=== PATIENT | male | born 1940 | race Hispanic/Latino ===

== ENCOUNTER → 2018-05-10 12:57 | Outpatient (CLI) | payer MEDICARE, SELFPAY ==
[2018-05-10 13:55] LABS: BUN Creatinine Ratio 18.2 (6-22); Blood Urea Nitrogen 20 mg/dL (9-20); Calcium 9.7 mg/dL (8.4-10.2); Carbon Dioxide 26 mmol/L (22-32); Chloride 102 mmol/L (98-107); Estimated Glomerular Filt Rate > 60.0 mL/min (>60); Glucose 98 mg/dL (80-110); HEMOLYSIS < 15 (0-50); Potassium 3.6 mmol/L (3.4-5.1); Sodium 143 mmol/L (137-145)
[2018-05-10 14:26] LABS: Prostate Specific Antigen 0.967 ng/mL (0.10-4.00)
== END ==
PROVIDERS: PCP Family Medicine; Visit Provider Internal Medicine
DX: I10 Essential (primary) hypertension (principal); Z85.46 Personal history of malignant neoplasm of prostate; Z90.79 Acquired absence of other genital organ(s)
CPT/HCPCS: 36415; 80048; 84153

== ENCOUNTER → 2018-10-29 13:12 | Outpatient (CLI) | payer MEDICARE, SELFPAY ==
[2018-10-29 13:57] LABS: Urine Amphetamines Negative (Negative); Urine Barbiturates Negative (Negative); Urine Benzodiazepines Negative (Negative); Urine Cocaine Negative (Negative); Urine MDMA Negative (Negative); Urine Methadone Negative (Negative); Urine Methamphetamines Negative (Negative); Urine Morphine/Opi cutoff 2000 Negative (Negative); Urine Oxycodone Negative (Negative); Urine Phencyclidine Negative (Negative); Urine Tetrahydrocannabinol Negative (Negative); Urine Tricyclic Antidepressant Negative (Negative)
== END ==
PROVIDERS: Family Provider Family Medicine; Visit Provider Orthopaedic Surgery
DX: Z71.6 Tobacco abuse counseling (principal)
CPT/HCPCS: 80305; 80323

== ENCOUNTER → 2019-01-18 13:35 | Outpatient (CLI) | payer MEDICARE, SELFPAY ==
[2019-01-18 15:36] LABS: Prostate Specific Antigen 1.12 ng/mL (0.10-4.00)
[2019-01-18 16:07] LABS: Vitamin D 25 Hydroxy (D3) 22.2 ng/mL (30.0-100.0)
== END ==
PROVIDERS: PCP Student in an Organized Health Care Education/Training Program; Visit Provider Student in an Organized Health Care Education/Training Program
DX: Z91.89 Other specified personal risk factors, not elsewhere classified (principal); Z85.46 Personal history of malignant neoplasm of prostate
CPT/HCPCS: 36415; 82306; 84153

== ENCOUNTER → 2019-01-22 14:33 | Outpatient (CLI) | payer MEDICARE, SELFPAY ==
--- NOTE | 2019-01-22 14:37 | DI.RAD.S_ITS ---
PROCEDURE: XR CHEST 2V INDICATIONS: Cough TECHNIQUE: 2 views of the chest were acquired. COMPARISON: [facility], , CHEST 1 VIEW, 07/12/2015, 20:53. FINDINGS: Surgical changes and devices: None. Lungs and pleura: Lungs are clear. No pleural effusions or pneumothorax. Mediastinum: Mediastinal contours are normal. Heart size is normal. Bones and chest wall: No suspicious bony abnormalities. Bilateral shoulder joint degeneration Soft tissues appear unremarkable. IMPRESSION: No acute disease. Dictated by: Sathish James M.D. on 01/22/2019 at 16:25 Approved by: Sathish James M.D. on 01/22/2019 at 16:28
== END ==
PROVIDERS: PCP Student in an Organized Health Care Education/Training Program; Visit Provider Registered Nurse
DX: R05 Cough (principal)
CPT/HCPCS: 71046

== ENCOUNTER 2019-02-13 16:07 | Emergency (ER) | payer MEDICARE, SELFPAY ==
[2019-02-13 16:12] VITALS: BP 162/79; PULSE 79; RESP 24; TEMP 36.9; O2SAT 95; BMI 39.9
--- NOTE | 2019-02-13 17:23 | DI.RAD.S_ITS ---
PROCEDURE: XR CHEST 2V INDICATIONS: cough, sob TECHNIQUE: 2 views of the chest were acquired. COMPARISON: [facility], CR, XR CHEST 2V, 01/22/2019, 14:38. FINDINGS: Surgical changes and devices: Postoperative changes of the lumbar spine are only partly visualized on this exam. Lungs and pleura: Hilar prominence is identified bilaterally with prominent associated interstitial markings within the bilateral perihilar regions. No focal consolidation, effusion, or pneumothorax is appreciated. Mediastinum: Mediastinal contours are normal. Heart size is normal. There is aortic atherosclerosis. Bones and chest wall: No suspicious bony abnormalities. Soft tissues appear unremarkable. IMPRESSION: Possible mild hilar vascular congestion. No definite pneumonia. Dictated by: Shawn Shepard M.D. on 02/13/2019 at 16:48 Approved by: Shawn Shepard M.D. on 02/13/2019 at 16:48
[2019-02-13 17:27] VITALS: BP 155/92; PULSE 109; RESP 14; O2SAT 95
[2019-02-13] MEDS: ALBUTEROL 2.5 MG/3 ML NEB (ADULT) INH (17:42)
[2019-02-13 17:43] VITALS: PULSE 105; RESP 24; O2SAT 95
[2019-02-13 17:44] LABS: Influenza A and B by PCR Rapid Negative (Negative)
[2019-02-13 18:29] LABS: Add Manual Diff / Slide Review NO; Basophils Absolute Auto 0 /uL (0-100); Basophils Percent Auto 0.5 % (0-2); Eosinophils Absolute Auto 200 /uL (0-450); Eosinophils Percent Auto 2.6 % (2-4); Hematocrit 46.8 % (41-53); Hemoglobin 15.7 g/dL (13.5-17.5); Lymphocytes Absolute Auto 1400 /uL (1100-4500); Lymphocytes Percent Auto 17.8 % (25-40); Mean Corpuscular HGB Conc 33.6 % (30-36); Mean Corpuscular Hemoglobin 31.1 PG (26-34); Mean Corpuscular Volume 92.6 fL (80-100); Monocytes Absolute Auto 1300 /uL (0-900); Monocytes Percent Auto 17.1 % (3-14); Neutrophils Absolute Auto 4700 /uL (1500-7000); Platelet Count 170 X10^3/uL (150-400); Red Blood Cell Count 5.05 X10^6/uL (4.5-5.9); Red Cell Distribution Width 14.1 % (11.6-14.8); White Blood Cell Count 7.6 X10^3/uL (4.5-11.0)
--- NOTE | 2019-02-13 18:34 | PC.NURSE ---
No cardiac / blood thinners filled since 01/07. Pt states he only gets his meds filled [facility] and if they have not been filled he is not taking them. Provider aware that no cardiac meds po since 02/04.
[2019-02-13 18:40] LABS: Alanine Aminotransferase 28 IU/L (21-72); Albumin 4.3 g/dL (3.5-5.0); Albumin Globulin Ratio 1.3 (1.0-2.8); Alkaline Phosphatase 66 U/L (38-126); Aspartate Aminotransferase 35 IU/L (17-59); Bilirubin Total 0.8 mg/dL (0.2-1.3); Blood Urea Nitrogen 18 mg/dL (9-20); Calcium 8.9 mg/dL (8.4-10.2); Carbon Dioxide 27 mmol/L (22-32); Chloride 103 mmol/L (98-107); Creatine Kinase 192 U/L (55-170); Estimated Glomerular Filt Rate > 60.0 mL/min (>60); Globulin 3.3 g/dL (1.7-4.1); Glucose 85 mg/dL (80-110); HEMOLYSIS 40 (0-50); Magnesium 1.9 mg/dL (1.6-2.3); Potassium 3.8 mmol/L (3.4-5.1); Sodium 139 mmol/L (137-145); Total Protein 7.6 g/dL (6.3-8.2)
[2019-02-13 18:49] LABS: B Type Natriuretic Peptide < 100 (<100)
[2019-02-13 18:51] LABS: Troponin I < 0.012 ng/mL (0.01-0.034)
[2019-02-13 18:55] LABS: CKMB % Relative Index 1.1 % (1.5-5.0); Creatine Kinase MB 2.18 ng/mL (<2.37)
[2019-02-13] MEDS: methylPREDNISolone 125 MG/2 ML VIAL IV (19:11)
[2019-02-13 19:20] VITALS: BP 134/91; PULSE 112; RESP 23; O2SAT 93
--- NOTE | 2019-02-13 19:38 | ED_ITS ---
HPI - URI/Sore Throat <JAY Kruse - Last Filed: 02/13/19 20:10> General Chief Complaint: Upper Respiratory Symptoms Stated Complaint: Flu symptoms Time Seen by Provider: 02/13/19 17:39 Source: patient Mode of arrival: ambulatory Limitations: no limitations History of Present Illness HPI Narrative: Patient is a 78-year-old former smoker male with history of atrial fibrillation who presents to the emergency department with a chief complaint of shortness of breath and cough. He has been seen by his primary care provider twice recently for a cough. He denies any chest pain, fever nausea vomiting or diarrhea. He states that he was on steroids recently. Upon interview and investigation, it appears that the patient has not refilled many of his medications since the end of December. He is not sure whether not he is taking his daily medications. However his blood pressure medications such as metoprolol tartrate, amlodipine, and hydrochlorothiazide have not been filled s [facility] 01/07. Related Data Home Medications Medication Instructions Recorded Confirmed atorvastatin 10 mg tablet 10 mg PO DAILY 07/25/18 02/13/19 omeprazole 20 mg PO DAILY 02/13/19 02/13/19 Previous Rx's Medication Instructions Recorded acetaminophen ER 650 mg 1,300 mg PO Q8HP PRN #90 tab 07/02/18 tablet,extended release celecoxib 100 mg capsule 100 mg PO DAILY #30 cap 11/26/18 amlodipine 10 mg tablet 10 mg PO QDAY #30 tab 01/07/19 hydrochlorothiazide 25 mg tablet 25 mg PO QDAY #30 tab 01/07/19 metoprolol tartrate 100 mg tablet 100 mg PO BID #60 tab 01/07/19 rivaroxaban 20 mg tablet 20 mg PO QDAY #30 tab 01/07/19 benzonatate 200 mg capsule 200 mg PO TID PRN #20 cap 01/22/19 albuterol sulfate [Ventolin HFA] 2 puff INHALATION Q4-6H PRN #18 02/13/19 gram doxycycline hyclate 100 mg PO BID #20 tab 02/13/19 prednisone 50 mg PO DAILY #5 tab 02/13/19 Allergies Allergy/AdvReac Type Severity Reaction Status Date / Time No Known Drug Allergies Allergy Verified 02/05/19 13:31 Review of Systems <JAY Kruse - Last Filed: 02/13/19 20:10> Review of Systems GENERAL: Denies chills, fatigue, malaise, fever, sweats. HEENT: Denies sinus pain, ear pain, sore throat, difficulty swallowing, dizziness. RESPIRATORY: See HPI CARDIOVASCULAR: See HPI GASTROINTESTINAL: Denies nausea, vomiting, abdominal pain, diarrhea, constipation, melena. : Denies dysuria, frequency, incontinence, hematuria, urinary retention. MUSCULOSKELETAL: denies weakness, joint pain, or bony pain SKIN: Denies rash, skin lesions, or other NEUROLOGIC: Denies weakness, headache, numbness, change in speech, confusion, seizures, incoordination. PSYCHIATRIC: No concerning psychosocial issues. 12 point review of systems is negative except for those stated above PFSH <JAY Kruse - Last Filed: 02/13/19 20:10> Medical History Alcoholism (Chronic) Atrial fibrillation (Chronic 2014) Cervical spine disease (Chronic) Chronic back pain (Chronic) Hypertension (Chronic) Lumbar spine pain (Chronic) Shoulder pain (Chronic) Sleep apnea (Chronic 2014) Prostate cancer (Resolved) Stroke (Resolved) Surgical History (Updated 05/07/18 @ 14:57 by Paty Mehta) History of cancer surgery (Resolved) History of lumbosacral spine surgery (Resolved 2013) Social History Smoking Status: Former smoker alcohol intake: former substance use type: does not use Social History Smoking Status: Former smoker alcohol intake: former substance use type: does not use Exam <JAY Kruse - Last Filed: 02/13/19 20:10> Narrative Exam Narrative: GENERAL: Morbidly obese male lying on stretcher HEAD: Atraumatic. Normocephalic. No temporal or scalp tenderness. EYES: Pupils equal round and reactive. Extraocular motions intact. No scleral icterus. No injection or drainage. ENT: Nose without bleeding, purulent drainage or septal hematoma. Throat without erythema, tonsillar hypertrophy or exudate. Uvula midline. Airway patent. NECK: Trachea midline. No JVD or lymphadenopathy. Supple, nontender, no meningeal signs. CARDIOVASCULAR: Irregular rhythm, heart rate 90s. RESPIRATORY: Diffuse expiratory wheezes to auscultation bilaterally. breath sounds equal bilaterally. No accessory muscle use, or retractions noted. consistent cough on exam room. GASTROINTESTINAL: Abdomen obese, non-tender, nondistended. No hepato- splenomegaly, or palpable masses. No guarding. active bowel sounds all 4 quadrants EXTREMITIES: No clubbing, cyanosis, or edema. No joint tenderness, effusion, or edema noted. BACK: Nontender without deformity or crepitance. No flank tenderness. NEURO: AOx3. SKIN: No rash or erythema. Initial Vital Signs Initial Vital Signs: Vital Signs Temperature 98.4 F 02/13/19 16:12 Pulse Rate 79 02/13/19 16:12 Respiratory Rate 24 02/13/19 16:12 Blood Pressure 162/79 H 02/13/19 16:12 Pulse Oximetry 95 02/13/19 16:12 <Ho Gonzalez DO - Last Filed: 02/14/19 03:23> Initial Vital Signs Initial Vital Signs: Vital Signs Temperature 98.4 F 02/13/19 16:12 Pulse Rate 79 02/13/19 16:12 Respiratory Rate 24 02/13/19 16:12 Blood Pressure 162/79 H 02/13/19 16:12 Pulse Oximetry 95 02/13/19 16:12 Course <JAY Kruse - Last Filed: 02/13/19 20:10> Orders Ordered: Discontinued Medications Albuterol (Ventolin) 2.5 mg INH NOW ONE Stop: 02/13/19 17:40 Last Admin: 02/13/19 17:42 Dose: 2.5 mg Hydrochlorothiazide (Hydrochlorothiazide) 25 mg PO NOW ONE Stop: 02/13/19 19:04 Last Admin: 02/13/19 19:57 Dose: Not Given Methylprednisolone (Solu-Medrol 125 Mg Vial) 125 mg IV NOW ONE Stop: 02/13/19 19:04 Last Admin: 02/13/19 19:11 Dose: 125 mg Metoprolol Tartrate (Lopressor) 100 mg PO NOW ONE Stop: 02/13/19 19:07 Last Admin: 02/13/19 19:57 Dose: 100 mg Vital Signs - 8 hr 02/13/19 20:00 02/13/19 20:49 Temperature 98.8 F Pulse Rate 106 H 90 Respiratory Rate 17 22 Blood Pressure 136/98 H Blood Pressure [Left Arm] 155/84 H Pulse Oximetry 93 94 <Ho Gonzalez DO - Last Filed: 02/14/19 03:23> Orders Ordered: Discontinued Medications Albuterol (Ventolin) 2.5 mg INH NOW ONE Stop: 02/13/19 17:40 Last Admin: 02/13/19 17:42 Dose: 2.5 mg Hydrochlorothiazide (Hydrochlorothiazide) 25 mg PO NOW ONE Stop: 02/13/19 19:04 Last Admin: 02/13/19 19:57 Dose: Not Given Methylprednisolone (Solu-Medrol 125 Mg Vial) 125 mg IV NOW ONE Stop: 02/13/19 19:04 Last Admin: 02/13/19 19:11 Dose: 125 mg Metoprolol Tartrate (Lopressor) 100 mg PO NOW ONE Stop: 02/13/19 19:07 Last Admin: 02/13/19 19:57 Dose: 100 mg Vital Signs - 8 hr 02/13/19 20:00 02/13/19 20:49 Temperature 98.8 F Pulse Rate 106 H 90 Respiratory Rate 17 22 Blood Pressure 136/98 H Blood Pressure [Left Arm] 155/84 H Pulse Oximetry 93 94 MDM - URI/Sore Throat <JAY Kruse - Last Filed: 02/13/19 20:10> Lab Data Result diagrams: 02/13/19 18:19 02/13/19 18:19 Lab Results 02/13/19 02/13/19 02/13/19 Range/Units 17:18 18:19 18:19 WBC 7.6 (4.5-11.0) X10^3/uL RBC 5.05 (4.5-5.9) X10^6/uL Hgb 15.7 (13.5-17.5) g/dL Hct 46.8 (41-53) % MCV 92.6 (80-100) fL MCH 31.1 (26-34) PG MCHC 33.6 (30-36) % RDW 14.1 (11.6-14.8) % Plt Count 170 (150-400) X10^3/uL Neut % (Auto) 62.0 (50-75) % Lymph % (Auto) 17.8 L (25-40) % Isabella % (Auto) 17.1 H (3-14) % Eos % (Auto) 2.6 (2-4) % Baso % (Auto) 0.5 (0-2) % Neut # (Auto) 4700 (1026-1569) /uL Lymph # (Auto) 1400 (8379-2091) /uL Isabella # (Auto) 1300 H (0-900) /uL Eos # (Auto) 200 (0-450) /uL Baso # (Auto) 0 (0-100) /uL Sodium 139 (137-145) mmol/L Potassium 3.8 (3.4-5.1) mmol/L Chloride 103 (98-107) mmol/L Carbon Dioxide 27 (22-32) mmol/L BUN 18 (9-20) mg/dL Creatinine 0.90 (0.66-1.25) mg/dL Estimated GFR > 60.0 (>60) mL/min BUN/Creatinine Ratio 20.0 (6-22) Glucose 85 (80-110) mg/dL Calcium 8.9 (8.4-10.2) mg/dL Phosphorus 3.0 (2.3-3.7) mg/dL Magnesium 1.9 (1.6-2.3) mg/dL Total Bilirubin 0.8 (0.2-1.3) mg/dL AST 35 (17-59) IU/L ALT 28 (21-72) IU/L Alkaline Phosphatase 66 (38-126) U/L Total Creatine Kinase 192 H (55-170) U/L CK-MB (CK-2) 2.18 (<2.37) ng/mL CK-MB (CK-2) Rel Index 1.1 L (1.5-5.0) % Troponin I < 0.012 (0.01-0.034) ng/mL B-Natriuretic Peptide < 100 (<100) Total Protein 7.6 (6.3-8.2) g/dL Albumin 4.3 (3.5-5.0) g/dL Globulin 3.3 (1.7-4.1) g/dL Albumin/Globulin Ratio 1.3 (1.0-2.8) Influenza A & B (PCR) Negative (Negative) Imaging Data Chest x-ray: Radiologist's impression: [place] [id number] [place] [id number] XRay Report Signed Patient: Rosendo Atkins TMR#: [id number] : 2Acct:[id number] Age/Sex: 78 / MDate of Service: 02/13/19 Loc: ED Accession Number: [id number] Procedure: XR chest 2V Ordering Provider: Nanci Barrios-ROSALINO PROCEDURE: XR CHEST 2V INDICATIONS: cough, sob TECHNIQUE: 2 views of the chest were acquired. COMPARISON: [facility], CR, XR CHEST 2V, 01/22/2019, 14:38. FINDINGS: Surgical changes and devices: Postoperative changes of the lumbar spine are only partly visualized on this exam. Lungs and pleura: Hilar prominence is identified bilaterally with prominent associated interstitial markings within the bilateral perihilar regions. No focal consolidation, effusion, or pneumothorax is appreciated. Mediastinum: Mediastinal contours are normal. Heart size is normal. There is aortic atherosclerosis. Bones and chest wall: No suspicious bony abnormalities. Soft tissues appear unremarkable. IMPRESSION: Possible mild hilar vascular congestion. No definite pneumonia. Dictated by: Shawn Shepard M.D. on 02/13/2019 at 16:48 Approved by: Shawn Shepard M.D. on 02/13/2019 at 16:48 ECG Data Attestation: I personally reviewed and interpreted this ECG as follows: Interpretation: Atrial fibrillation. Heart rate 105. Right bundle yesika block noted. previous right bundle-branch block noted in previous EKG. PVCs x 2 noted. MDM Narrative Medical decision making narrative: The patient is a 78-year-old male who presents with 3 weeks of flu-like symptoms. on exam he is having wheezing, coughing. He was treated with a nebulizer by respiratory therapist. He was given IV steroids. Upon interview, it became questionable whether not he has been taking his medications appropriately. He refilled many of his medications in December for 30 days, and has not refilled them since. Thus I doubt he is taking his medications appropriately. He initially told me he did not take his metoprolol, so we gave him his oral night dose in the emergency department. This brought his rate down to AFib in the low 100s- 90s. He had a negative troponin, normal white blood cell count and a negative flu swab. I discussed at length following his care providers instructions regarding his medications, as I am concerned he is not taking them appropriately. I encouraged him to follow up with his primary care provider. I discussed admission to the hospital, but the patient declined. I offered to connect him with social work but the patient declined. Discussed at length return precautions to the emergency department including severe shortness of breath or chest pain. Patient no questions or concerns the emergency department. He did remain afebrile with a good pulse ox level and is hemodynamically stable throughout his stay in the emergency department. <Ho Gonzalez DO - Last Filed: 02/14/19 03:23> Lab Data Lab Results 02/13/19 02/13/19 02/13/19 Range/Units 17:18 18:19 18:19 WBC 7.6 (4.5-11.0) X10^3/uL RBC 5.05 (4.5-5.9) X10^6/uL Hgb 15.7 (13.5-17.5) g/dL Hct 46.8 (41-53) % MCV 92.6 (80-100) fL MCH 31.1 (26-34) PG MCHC 33.6 (30-36) % RDW 14.1 (11.6-14.8) % Plt Count 170 (150-400) X10^3/uL Neut % (Auto) 62.0 (50-75) % Lymph % (Auto) 17.8 L (25-40) % Isabella % (Auto) 17.1 H (3-14) % Eos % (Auto) 2.6 (2-4) % Baso % (Auto) 0.5 (0-2) % Neut # (Auto) 4700 (9875-3458) /uL Lymph # (Auto) 1400 (8598-3647) /uL Isabella # (Auto) 1300 H (0-900) /uL Eos # (Auto) 200 (0-450) /uL Baso # (Auto) 0 (0-100) /uL Sodium 139 (137-145) mmol/L Potassium 3.8 (3.4-5.1) mmol/L Chloride 103 (98-107) mmol/L Carbon Dioxide 27 (22-32) mmol/L BUN 18 (9-20) mg/dL Creatinine 0.90 (0.66-1.25) mg/dL Estimated GFR > 60.0 (>60) mL/min BUN/Creatinine Ratio 20.0 (6-22) Glucose 85 (80-110) mg/dL Calcium 8.9 (8.4-10.2) mg/dL Phosphorus 3.0 (2.3-3.7) mg/dL Magnesium 1.9 (1.6-2.3) mg/dL Total Bilirubin 0.8 (0.2-1.3) mg/dL AST 35 (17-59) IU/L ALT 28 (21-72) IU/L Alkaline Phosphatase 66 (38-126) U/L Total Creatine Kinase 192 H (55-170) U/L CK-MB (CK-2) 2.18 (<2.37) ng/mL CK-MB (CK-2) Rel Index 1.1 L (1.5-5.0) % Troponin I < 0.012 (0.01-0.034) ng/mL B-Natriuretic Peptide < 100 (<100) Total Protein 7.6 (6.3-8.2) g/dL Albumin 4.3 (3.5-5.0) g/dL Globulin 3.3 (1.7-4.1) g/dL Albumin/Globulin Ratio 1.3 (1.0-2.8) Influenza A & B (PCR) Negative (Negative) Discharge Plan Departure Patient Disposition: Home Clinical Impression: Lung infection, Cough, Breath shortness Discharge Date/Time: 02/13/19 20:51 Interventions: ED Discharge Assessment Last Done: 02/13/19 20:49 Instructions: DI for Cough -- Adult, DI for Shortness of Breath Activity Restrictions/Additional Instructions: I am giving you an inhaler for your wheezing, an antibiotic for the infection in your lungs, and a burst of prednisone for the inflammation in your lungs. Please call your doctor tomorrow. I am concerned about your medication use and that you are not taking the appropriate ones. Please come back to the emergency department for any acute concerns such as severe shortness of breath or chest pain. We gave you your dose of metoprolol tartrate tonight in the emergency department. Please start the prednisone tomorrow, as you receives some in your IV tonight. Prescriptions: New prednisone 50 mg tablet 50 mg PO DAILY Qty: 5 RF: 0 albuterol sulfate [Ventolin HFA] 90 mcg/actuation HFA aerosol inhaler 2 puff INHALATION Q4-6H PRN (Reason: shortness of breath) Qty: 18 RF: 0 doxycycline hyclate 100 mg tablet 100 mg PO BID Qty: 20 RF: 0 No Action celecoxib [Celebrex] 100 mg capsule 100 mg PO DAILY Qty: 30 RF: 5 amlodipine 10 mg tablet 10 mg PO QDAY Qty: 30 RF: 0 hydrochlorothiazide 25 mg tablet 25 mg PO QDAY Qty: 30 RF: 0 metoprolol tartrate [Lopressor] 100 mg tablet 100 mg PO BID Qty: 60 RF: 0 Xarelto 20 mg tablet 20 mg PO QDAY Qty: 30 RF: 0 benzonatate 200 mg capsule 200 mg PO TID PRN (Reason: cough) Qty: 20 RF: 0 acetaminophen 650 mg tablet extended release 1,300 mg PO Q8HP PRN (Reason: pain) Qty: 90 RF: 5 atorvastatin 10 mg tablet 10 mg PO DAILY RF: 0 omeprazole 20 mg capsule,delayed release(DR/EC) 20 mg PO DAILY RF: 0 Referrals: Rosendo Armando MD [Primary Care Provider] - <Ho Gonzalez DO - Last Filed: 02/14/19 03:23> [facility] ED Attending Kedar Attestation: I was immediately available in the department for consultation. Documentation has been reviewed. I agree with assessment and plan.
[2019-02-13] MEDS: METOPROLOL IR 50 MG TABLET 100 MG PO (19:57)
[2019-02-13 20:00] VITALS: BP 155/84; PULSE 106; RESP 17; O2SAT 93
[2019-02-13 20:49] VITALS: BP 136/98; PULSE 90; RESP 22; TEMP 37.1; O2SAT 94; O2SAT 99
== END 2019-02-13 20:51 | disposition home or self-care (01) ==
PROVIDERS: Emergency Medicine; Emergency Provider Nurse Practitioner Family; PCP Student in an Organized Health Care Education/Training Program
DX: J18.9 Pneumonia, unspecified organism (principal)
CPT/HCPCS: 36415; 36591; 71046; 80053; 82550; 82553; 83735; 83880; 84100; 84484; 85025; 87400; 93005; 94640; 96374; 99283; 99285; J2930; J7613

== ENCOUNTER 2019-03-12 07:18 | Emergency (ER) | payer MEDICARE, SELFPAY ==
[2019-03-12 07:25] VITALS: BP 170/79; PULSE 68; RESP 16; TEMP 36.4; O2SAT 98; BMI 39.9
--- NOTE | 2019-03-12 08:45 | ED.FALL ---
HPI - Fall General Chief Complaint: Fall Stated Complaint: LT eye lid cut/tripped Time Seen by Provider: 03/12/19 07:30 Source: patient Mode of arrival: ambulatory Limitations: no limitations History of Present Illness HPI Narrative: Patient presents emergency department complaining of a fall after tripping in his living room. Patient states he fell forward and hit the side of his head on a table. He sustained a laceration just above and going through his left lateral eyebrow. He denies loss of consciousness. Patient is on anticoagulation for atrial fibrillation. He states that he was not hurt in any other way. He has been ambulatory since. He denies neck pain or back pain. No extremity pain. no other complaints at this time. No visual changes. Related Data Home Medications Medication Instructions Recorded Confirmed aspirin 81 mg tablet,delayed 81 mg PO DAILY 02/19/19 02/19/19 release varenicline 0.5 mg (11)-1 mg (42) each PO PER PKG DIR each 02/19/19 02/19/19 tablets in a dose pack Previous Rx's Medication Instructions Recorded acetaminophen ER 650 mg 1,300 mg PO Q8HP PRN #90 tab 07/02/18 tablet,extended release benzonatate 200 mg capsule 200 mg PO TID PRN #20 cap 01/22/19 albuterol sulfate [Ventolin HFA] 2 puff INHALATION Q4-6H PRN #18 02/13/19 gram doxycycline hyclate 100 mg PO BID #20 tab 02/13/19 amlodipine 10 mg tablet 10 mg PO QDAY #30 tab 02/19/19 atorvastatin 10 mg tablet 10 mg PO DAILY #30 tab 02/19/19 budesonide 90 mcg/actuation breath 1 inhalation INHALATION BID #1 each 02/19/19 activated powder inhaler celecoxib 100 mg capsule 100 mg PO DAILY #30 cap 02/19/19 hydrochlorothiazide 25 mg tablet 25 mg PO QDAY #30 tab 02/19/19 loratadine 10 mg tablet 10 mg PO DAILY #90 tab 02/19/19 metoprolol tartrate 100 mg tablet 100 mg PO BID #60 tab 02/19/19 mirtazapine 15 mg tablet 15 mg PO DAILY #30 tab 02/19/19 omeprazole 20 mg capsule,delayed 20 mg PO DAILY #30 cap 02/19/19 release rivaroxaban 20 mg tablet 20 mg PO QDAY #30 tab 02/19/19 Allergies Allergy/AdvReac Type Severity Reaction Status Date / Time No Known Drug Allergies Allergy Verified 02/19/19 12:05 Review of Systems Constitutional Denies chills, Denies fever(s), Denies lethargy and Denies weakness Eyes Denies change in vision, Denies eye discharge, Denies irritation and Denies loss of vision ENT Ears, Nose, Mouth, and Throat: Denies change in voice, Denies neck pain and Denies sore throat Comments: Laceration left forehead/periorbital area. Cardiovascular Denies chest pain, Denies irregular heart rhythm, Denies lightheadedness, Denies palpitations, Denies dyspnea, Denies dyspnea on exertion and Denies orthopnea Respiratory Denies cough, Denies dyspnea, Denies dyspnea on exertion and Denies wheezing Gastrointestinal Gastrointestinal: Denies abdominal pain, Denies change in bowel habits, Denies diarrhea, Denies nausea and Denies vomiting Genitourinary Denies hematuria, Denies flank pain, Denies urinary incontinence and Denies urinary urgency Musculoskeletal Denies neck pain Integumentary/Breasts Denies pruritus, Denies erythema, Denies rash and Denies wounds Neurologic Denies confusion, Denies loss of vision and Denies weakness Psychiatric Denies anxiety, Denies confusion, Denies depression, Denies homicidal ideation and Denies suicidal ideation Endocrine Denies palpitations Hematologic/Lymphatic Denies easy bruising Allergic/Immunologic Denies wheezing Exam Initial Vital Signs Initial Vital Signs: Vital Signs Temperature 97.5 F L 03/12/19 07:25 Pulse Rate 68 03/12/19 07:25 Respiratory Rate 16 03/12/19 07:25 Blood Pressure 170/79 H 03/12/19 07:25 Pulse Oximetry 98 03/12/19 07:25 Const General: cooperative and well developed Nutritional Appearance: well nourished Orientation: alert, awake, oriented x3 and not confused [facility] Head: normocephalic, No atraumatic (2.5 cm laceration extending through the lateral left eyebrow) and contusion (Left lateral periorbital) Ears: external ears normal Nose: external nose normal and No nasal discharge Face and sinus: face symmetric and No dry mucous membranes Mouth: oral mucosae normal and moist mucous membranes Teeth and gingiva: dentition normal Eyes General: appearance normal, both eyes and all related structures Eyelids: eyelids normal Conjunctivae: conjunctivae normal Sclera: sclerae normal Pupils: PERRL EOM: EOM intact bilaterally Neck Neck: normal visual inspection, trachea midline, No lymphadenopathy, No midline deformity and No JVD Lymphatic: No lymphedema Chest Chest: normal inspection of the chest Resp Effort & Inspection: normal respiratory effort, able to speak in complete sentences, no respiratory distress and no use of accessory muscles Auscultation: clear to auscultation bilaterally, no rales, no rhonchi and no wheezes Cardio Rate: regular rate Rhythm: regular rhythm Heart Sounds: no click, no gallops, no murmurs and no rubs Pulses: normal peripheral pulses GI Inspection: non-distended Palpation: soft, no hepatosplenomegaly, No guarding, No pulsatile mass and No tender Auscultation: normal bowel sounds Back/Spine/Pelvis Back: No CVA tenderness Cervical Spine: cervical ROM normal and No pain with cervical ROM Thoracic/Lumbar Spine: thoracic and lumbar spine normal to inspection Skin General: no rashes or lesions noted, No jaundice and No petechiae Trauma: laceration (2.5 cm, as above; through left eyebrow) left face irregular, involves subcutaneous tissue, motor nerve function intact and sensation intact; does not involve muscle tissue Neuro General: alert, oriented x3, gait normal and no focal motor deficits Speech: speech normal Extrem General: full ROM, no clubbing, cyanosis or edema, no pedal edema and no calf tenderness Psych Appearance: well kempt Mental Status: mental status grossly normal Attitude: cooperative Thought Content: normal and suicidality Judgment: judgment good [facility] Medical History Alcoholism (Chronic) Atrial fibrillation (Chronic 2014) Cervical spine disease (Chronic) Chronic back pain (Chronic) Hypertension (Chronic) Lumbar spine pain (Chronic) Shoulder pain (Chronic) Sleep apnea (Chronic 2014) Prostate cancer (Resolved) Stroke (Resolved) Surgical History History of cancer surgery (Resolved) History of lumbosacral spine surgery (Resolved 2013) Social History Smoking Status: Former smoker alcohol intake: former substance use type: does not use Social History Smoking Status: Former smoker alcohol intake: former substance use type: does not use Procedures Laceration Repair Laceration 1: Site: face Side (If applicable): left Size (cm): 2.5 Description: irregular Depth: simple, single layer Local Anesthetic: lidocaine 2% Amount of anesthesia used (mL): 3 Pre-repair: wound explored, irrigated extensively and deep structures intact Skin layer closed with: nylon Size (cm): 5-0 Number of sutures: 6 Technique: simple, interrupted Course Course Narrative: 6 sutures were placed to repair the patient's laceration. Patient tolerated this without difficulty. Head CT was unremarkable. Patient did not show any other evidence of injury, and was moving all 4 extremities and ambulating without difficulty. I felt he was stable for discharge home. We have discussed wound care, as well as symptomatic management at home. We have also discussed the need for suture removal in 7 days, based on the depth of the patient's wound. We have discussed the usual indications for return to the emergency department. Orders Ordered: Discontinued Medications Acetaminophen (Tylenol) 975 mg PO NOW ONE Stop: 03/12/19 09:32 Last Admin: 03/12/19 09:36 Dose: 975 mg Vital Signs - 8 hr 03/12/19 07:25 Temperature 97.5 F L Pulse Rate 68 Respiratory Rate 16 Blood Pressure 170/79 H Pulse Oximetry 98 MDM - Fall Medical Records Attestation: I reviewed the patient's medical records. Imaging Data CT scan - head: Radiologist's impression: PROCEDURE: CT HEAD/BRAIN WO CON INDICATIONS: fall/head injury, on Xarelto, left forehead area TECHNIQUE: Noncontrast 4.5 mm thick angled axial sections acquired from the foramen magnum to the vertex, with coronal and sagittal reformats. For radiation dose reduction, the following was used: automated exposure control, adjustment of mA and/or kV according to patient size. COMPARISON: [facility], MR, STROKE PROTOCOL, 10/21/2016, 7:49. [facility], CT, HEAD WITHOUT CONTRAST, 12/05/2017, 12:59. FINDINGS: Image quality: Excellent. CSF spaces: Basal cisterns are patent. No extra-axial fluid collections. The ventricles are symmetric in size and shape. Brain: There is a stable remote infarction involving the left parietal lobe and a portion of the posterior left temporal lobe. No intracranial bleeds or masses. There is cerebral volume loss for age, with resultant ventricular and sulcal prominence. There are periventricular and deep white matter chronic small vessel ischemic changes. There is intracranial internal carotid artery atherosclerosis. Skull and face: A left forehead laceration with subcutaneous gas and hematoma can be seen. No underlying calvarial fracture is seen. Calvarium and visualized facial bones appear intact, without suspicious lesions. Note is made of bilateral lens replacements. Sinuses: Visualized sinuses and mastoids are clear. IMPRESSION: No acute intracranial hemorrhage is seen. Left forehead laceration and hematoma. 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 Note is made of age-appropriate brain parenchymal volume loss and chronic small vessel ischemic changes. Dictated by: Lamont Callahan M.D. on 03/12/2019 at 8:11 Approved by: Lamont Callahan M.D. on 03/12/2019 at 8:14 Discharge Plan Departure Patient Disposition: Home Clinical Impression: Fall Qualifiers: Encounter type: initial encounter Qualified Code(s): W19.XXXA - Unspecified fall, initial encounter CHI (closed head injury) Qualifiers: Encounter type: initial encounter Qualified Code(s): S09.90XA - Unspecified injury of head, initial encounter Facial laceration Qualifiers: Encounter type: initial encounter Qualified Code(s): S01.81XA - Laceration without foreign body of other part of head, initial encounter Discharge Date/Time: 03/12/19 09:46 Interventions: ED Discharge Assessment Last Done: 03/12/19 09:45 Instructions: DI for Laceration Repair, DI for Closed Head Injury Activity Restrictions/Additional Instructions: Please keep your wound clean and dry. Do not rub, scrub, or immerse the wound until sutures are removed, as this can cause infection. Sutures should be taken out by your primary doctor or urgent care in 7 days. Prescriptions: No Action benzonatate 200 mg capsule 200 mg PO TID PRN (Reason: cough) Qty: 20 RF: 0 acetaminophen 650 mg tablet extended release 1,300 mg PO Q8HP PRN (Reason: pain) Qty: 90 RF: 5 aspirin [Adult Low Dose Aspirin] 81 mg tablet,delayed release (DR/EC) 81 mg PO DAILY RF: 0 budesonide 90 mcg/actuation aerosol powdr breath activated 1 inhalation INHALATION BID Qty: 1 RF: 2 amlodipine 10 mg tablet 10 mg PO QDAY Qty: 30 RF: 3 Xarelto 20 mg tablet 20 mg PO QDAY Qty: 30 RF: 3 hydrochlorothiazide 25 mg tablet 25 mg PO QDAY Qty: 30 RF: 3 mirtazapine 15 mg tablet 15 mg PO DAILY Qty: 30 RF: 3 atorvastatin 10 mg tablet 10 mg PO DAILY Qty: 30 RF: 3 celecoxib [Celebrex] 100 mg capsule 100 mg PO DAILY Qty: 30 RF: 5 metoprolol tartrate [Lopressor] 100 mg tablet 100 mg PO BID Qty: 60 RF: 3 omeprazole 20 mg capsule,delayed release(DR/EC) 20 mg PO DAILY Qty: 30 RF: 3 loratadine [Allergy Relief (loratadine)] 10 mg tablet 10 mg PO DAILY Qty: 90 RF: 3 Chantix Starting Month Box 0.5 mg (11)- 1 mg (42) tablets,dose pack PO PER PKG DIR RF: 0 albuterol sulfate [Ventolin HFA] 90 mcg/actuation HFA aerosol inhaler 2 puff INHALATION Q4-6H PRN (Reason: shortness of breath) Qty: 18 RF: 0 doxycycline hyclate 100 mg tablet 100 mg PO BID Qty: 20 RF: 0 Referrals: Rosendo Armando MD [Primary Care Provider] -
--- NOTE | 2019-03-12 08:50 | DI.CT.S_ITS ---
PROCEDURE: CT HEAD/BRAIN WO CON INDICATIONS: fall/head injury, on Xarelto, left forehead area TECHNIQUE: Noncontrast 4.5 mm thick angled axial sections acquired from the foramen magnum to the vertex, with coronal and sagittal reformats. For radiation dose reduction, the following was used: automated exposure control, adjustment of mA and/or kV according to patient size. COMPARISON: [facility], MR, STROKE PROTOCOL, 10/21/2016, 7:49. [facility], CT, HEAD WITHOUT CONTRAST, 12/05/2017, 12:59. FINDINGS: Image quality: Excellent. CSF spaces: Basal cisterns are patent. No extra-axial fluid collections. The ventricles are symmetric in size and shape. Brain: There is a stable remote infarction involving the left parietal lobe and a portion of the posterior left temporal lobe. No intracranial bleeds or masses. There is cerebral volume loss for age, with resultant ventricular and sulcal prominence. There are periventricular and deep white matter chronic small vessel ischemic changes. There is intracranial internal carotid artery atherosclerosis. Skull and face: A left forehead laceration with subcutaneous gas and hematoma can be seen. No underlying calvarial fracture is seen. Calvarium and visualized facial bones appear intact, without suspicious lesions. Note is made of bilateral lens replacements. Sinuses: Visualized sinuses and mastoids are clear. IMPRESSION: No acute intracranial hemorrhage is seen. Left forehead laceration and hematoma. 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 Note is made of age-appropriate brain parenchymal volume loss and chronic small vessel ischemic changes. Dictated by: Lamont Callahan M.D. on 03/12/2019 at 8:11 Approved by: Lamont Callahan M.D. on 03/12/2019 at 8:14
[2019-03-12] MEDS: ACETAMINOPHEN 325 MG TABLET 975 MG PO (09:36)
[2019-03-12 09:41] VITALS: BP 149/93; PULSE 88; RESP 20; O2SAT 94
== END 2019-03-12 09:46 | disposition home or self-care (01) ==
PROVIDERS: Emergency Provider Emergency Medicine; PCP Student in an Organized Health Care Education/Training Program
DX: S01.81XA Laceration without foreign body of other part of head, initial encounter (principal); S09.90XA Unspecified injury of head, initial encounter; W19.XXXA Unspecified fall, initial encounter; Z79.01 Long term (current) use of anticoagulants
CPT/HCPCS: 12011; 70450; 99283; 99284

== ENCOUNTER → 2019-09-26 10:22 | Outpatient (CLI) | payer MEDICARE, SELFPAY ==
[2019-09-26 11:13] LABS: Add Manual Diff / Slide Review NO; Basophils Absolute Auto 0 /uL (0-100); Basophils Percent Auto 0.5 % (0-2); Eosinophils Absolute Auto 400 /uL (0-450); Eosinophils Percent Auto 5.5 % (2-4); Hematocrit 47.4 % (41-53); Hemoglobin 15.9 g/dL (13.5-17.5); Lymphocytes Absolute Auto 1700 /uL (1100-4500); Lymphocytes Percent Auto 20.7 % (25-40); Mean Corpuscular HGB Conc 33.7 % (30-36); Mean Corpuscular Hemoglobin 30.6 PG (26-34); Mean Corpuscular Volume 90.8 fL (80-100); Monocytes Absolute Auto 800 /uL (0-900); Monocytes Percent Auto 10.2 % (3-14); Neutrophils Absolute Auto 5100 /uL (1500-7000); Neutrophils Percent Auto 63.1 % (50-75); Platelet Count 258 X10^3/uL (150-400); Red Blood Cell Count 5.22 X10^6/uL (4.5-5.9); Red Cell Distribution Width 14.2 % (11.6-14.8); White Blood Cell Count 8.1 X10^3/uL (4.5-11.0)
[2019-09-26 12:04] LABS: Alanine Aminotransferase 17 IU/L (<50); Albumin 4.3 g/dL (3.5-5.0); Albumin Globulin Ratio 1.4 (1.0-2.8); Alkaline Phosphatase 79 U/L (38-126); Aspartate Aminotransferase 33 IU/L (17-59); BUN Creatinine Ratio 18.2 (6-22); Bilirubin Total 0.8 mg/dL (0.2-1.3); Blood Urea Nitrogen 20 mg/dL (9-20); Calcium 9.4 mg/dL (8.4-10.2); Carbon Dioxide 29 mmol/L (22-32); Chloride 99 mmol/L (98-107); Estimated Glomerular Filt Rate > 60.0 mL/min (>60); Globulin 3.1 g/dL (1.7-4.1); Glucose 96 mg/dL (80-110); HEMOLYSIS 15 (0-50); Potassium 4.3 mmol/L (3.4-5.1); Sodium 137 mmol/L (137-145); Total Protein 7.4 g/dL (6.3-8.2)
== END ==
PROVIDERS: PCP Student in an Organized Health Care Education/Training Program; Visit Provider Student in an Organized Health Care Education/Training Program
DX: R06.02 Shortness of breath (principal)
CPT/HCPCS: 36415; 80053; 85025

== ENCOUNTER → 2019-10-24 14:27 | Outpatient (CLI) | payer MEDICARE, SELFPAY ==
--- NOTE | 2019-11-01 08:49 | PM.PFT.1 ---
Pulmonary Function Test Referral & Results Date Patient Seen: 10/24/19 Requesting provider: Rosendo Armando Results: The spirometry demonstrates an FVC of 2.36 L which is 70% of predicted. The FEV1 was measured at 1.90 L which is 80% of predicted. The FEV1/FVC ratio was 80 which is 111% of predicted. Following the administration of bronchodilator there was a 23% improvement in FEF 25-75%. Lung volumes show an SVC of 3.09 L which is 83% of predicted. The diffusing capacity was measured at 22.86 which is 89% of predicted. The maximum voluntary ventilation was reduced Interpretation: This study demonstrates perhaps very mild obstructive lung disease based on slight reduction in FEV1 and minimal improvement in small airway flow after bronchodilator as above There is also minimal reduction in SVC suggesting potential for very mild restrictive lung disease Compared to PFTs performed in December 2015, current study is essentially unchanged
== END ==
PROVIDERS: PCP Student in an Organized Health Care Education/Training Program; Visit Provider Student in an Organized Health Care Education/Training Program
DX: R06.02 Shortness of breath (principal); F17.200 Nicotine dependence, unspecified, uncomplicated
CPT/HCPCS: 94060; 94726; 94729

== ENCOUNTER → 2020-12-04 13:42 | Outpatient (CLI) | payer MEDICARE, SELFPAY ==
[2020-12-04 14:24] LABS: Add Manual Diff / Slide Review NO; Basophils Absolute Auto 0 /uL (0-100); Basophils Percent Auto 0.4 % (0-2); Eosinophils Absolute Auto 300 /uL (0-450); Hematocrit 45.3 % (41-53); Hemoglobin 15.2 g/dL (13.5-17.5); Lymphocytes Absolute Auto 2100 /uL (1100-4500); Lymphocytes Percent Auto 24.5 % (25-40); Mean Corpuscular HGB Conc 33.6 % (30-36); Mean Corpuscular Hemoglobin 29.5 PG (26-34); Mean Corpuscular Volume 87.8 fL (80-100); Monocytes Absolute Auto 900 /uL (0-900); Monocytes Percent Auto 11.2 % (3-14); Neutrophils Absolute Auto 5100 /uL (1500-7000); Neutrophils Percent Auto 60.9 % (50-75); Platelet Count 219 X10^3/uL (150-400); Red Blood Cell Count 5.16 X10^6/uL (4.5-5.9); Red Cell Distribution Width 14.4 % (11.6-14.8); White Blood Cell Count 8.4 X10^3/uL (4.5-11.0)
[2020-12-04 14:36] LABS: Hemoglobin A1C% w Est Avg Glu 5.7 % (4.0-6.0)
[2020-12-04 14:37] LABS: Alanine Aminotransferase 15 IU/L (<50); Albumin 4.2 g/dL (3.5-5.0); Albumin Globulin Ratio 1.2 (1.0-2.8); Alkaline Phosphatase 90 U/L (38-126); Aspartate Aminotransferase 25 IU/L (17-59); BUN Creatinine Ratio 23.7 (6-22); Bilirubin Total 0.7 mg/dL (0.2-1.3); Blood Urea Nitrogen 18 mg/dL (9-20); Calcium 9.7 mg/dL (8.4-10.2); Carbon Dioxide 24 mmol/L (22-32); Chloride 109 mmol/L (98-107); Estimated Glomerular Filt Rate > 60.0 mL/min (>60); Globulin 3.5 g/dL (1.7-4.1); Glucose 110 mg/dL (80-110); HEMOLYSIS < 15 (0-50); Sodium 140 mmol/L (137-145); Total Protein 7.7 g/dL (6.3-8.2)
[2020-12-04 15:07] LABS: Prostate Specific Antigen 1.12 ng/mL (0.10-4.00)
[2020-12-04 15:18] LABS: Vitamin D 25 Hydroxy (D3) 15.8 ng/mL (30.0-100.0)
[2020-12-04 15:25] LABS: Vitamin B12 368 pg/mL (239-931)
== END ==
PROVIDERS: PCP Student in an Organized Health Care Education/Training Program; Referring Provider Student in an Organized Health Care Education/Training Program; Visit Provider Student in an Organized Health Care Education/Training Program
DX: I10 Essential (primary) hypertension (principal); R53.83 Other fatigue; Z79.899 Other long term (current) drug therapy; C61 Malignant neoplasm of prostate; I48.20 Chronic atrial fibrillation, unspecified; Z79.01 Long term (current) use of anticoagulants
CPT/HCPCS: 36415; 80053; 82306; 82607; 83036; 84153; 85025

== ENCOUNTER 2021-04-15 16:28 | Emergency (ER) | payer MEDICARE, SELFPAY ==
[2021-04-15 16:30] VITALS: BP 174/90; PULSE 82; RESP 17; TEMP 36.2; O2SAT 97; BMI 38.2
--- NOTE | 2021-04-15 16:34 | DI.RAD.S_ITS ---
PROCEDURE: XR FOOT RT MIN 3V INDICATIONS: pain and swelling TECHNIQUE: 3 views of the foot were acquired. COMPARISON: None. FINDINGS: Bones: Focal bony irregularity is seen involving the proximal phalanx of the 5th toe. No additional focal bony abnormalities can be seen. No suspicious bony lesions. Mild hallux valgus deformity is seen, with associated focal degenerative change of the 1st metatarsophalangeal joint. Milder degenerative changes are seen elsewhere, including along the Lisfranc joint. A plantar calcaneal spur is seen. Soft tissues: Distal soft tissue swelling is seen. IMPRESSION: Bony irregularity seen involving the proximal phalanx of the 5th toe, which is likely related to remote fracture. However, please correlate with patient history and focal tenderness. Distal soft tissue swelling is seen. Degenerative changes are seen, with mild hallux valgus deformity. If there is point tenderness (or other clinical suspicion for a fracture not seen on these images) then a dedicated CT could be considered for further evaluation, if clinically appropriate. If there is strong suspicion for developing osteomyelitis, please consider a dedicated MRI without and with contrast for further evaluation (assuming that there is no contraindication to MRI). Dictated by: Lamont Callahan M.D. on 04/15/2021 at 16:02 Approved by: Lamont Callahan M.D. on 04/15/2021 at 16:04
--- NOTE | 2021-04-15 18:24 | ED_ITS ---
HPI - Extremity Problem General Chief complaint: Extremity Problem,Nontraumatic Stated complaint: Rt Foot Swelling Time Seen by Provider: 04/15/21 17:59 Source: patient Mode of arrival: Ambulatory Limitations: no limitations History of Present Illness HPI Narrative: 80-year-old male, daily smoker with history of hypertension, hyperlipidemia and diabetes presents with a chief complaint of gradually worsening right foot pain, swelling and redness over the past few days. He denies any injury nor history of the same. He does have some pain and swelling on his anterior foot and reagan as well as some in the posterior calf. He denies any fever or chills. He denies chest pain or shortness of breath. He is otherw ise well and free of complaint. He denies any recent injury, long distance travel, history of blood clot or cancer. MD Complaint: extremity pain and extremity swelling Onset (ago): day(s) Pain Consistency: constant Location: right Quality: burning and aching Radiation: none Relieving factors: rest Exacerbating factors: walking and palpation Associated symptoms: denies other symptoms Related Data Previous Rx's Medication Instructions Recorded acetaminophen 500 mg tablet 1,000 mg PO Q6H #240 tab 12/04/20 amlodipine 10 mg tablet 10 mg PO DAILY #90 tab 12/04/20 atorvastatin 10 mg tablet 10 mg PO BEDTIME #90 tab 12/04/20 hydrochlorothiazide 25 mg tablet 25 mg PO QDAY #90 tab 12/04/20 loratadine 10 mg tablet 10 mg PO DAILY #90 tab 12/04/20 metoprolol tartrate 100 mg tablet 100 mg PO BID #180 tab 12/04/20 mirtazapine 15 mg tablet 15 mg PO DAILY #90 tab 12/04/20 omeprazole 20 mg capsule,delayed 20 mg PO DAILY #90 cap 12/04/20 release rivaroxaban 20 mg tablet 20 mg PO QDAY #90 tab 12/04/20 diclofenac sodium 100 mg 100 mg PO DAILY #90 tab 01/18/21 tablet,extended release 24 hr Parking Permit... #1 ea 02/23/21 doxycycline hyclate 100 mg PO BID #20 tab 04/15/21 Allergies Allergy/AdvReac Type Severity Reaction Status Date / Time No Known Drug Allergies Allergy Verified 04/15/21 16:31 Review of Systems Constitutional Constitutional: Denies chills, Denies fatigue, Denies fever(s), Denies frequent falls, Denies lethargy and Denies weakness Eyes Eyes: Denies change in vision, Denies eye discharge, Denies irritation and Denies loss of vision ENT Ears, Nose, Mouth, and Throat: Denies change in voice, Denies dizziness, Denies neck pain, Denies sore throat and Denies throat swelling Cardiovascular Cardiovascular: Denies chest pain, Denies irregular heart rhythm, Denies lightheadedness, Denies palpitations, Denies dyspnea, Denies dyspnea on exertion and Denies orthopnea Respiratory Respiratory: Denies cough, Denies dyspnea, Denies dyspnea on exertion and Denies wheezing Gastrointestinal Gastrointestinal: Denies abdominal pain, Denies change in bowel habits, Denies diarrhea, Denies nausea and Denies vomiting Musculoskeletal Musculoskeletal: Denies neck pain and Denies numbness Integumentary/Breasts Skin/Breast: Denies pruritus, Reports erythema, Denies rash, Reports skin pain, Reports skin swelling and Denies wounds Neurologic Neurologic: Denies behavioral changes, Denies confusion, Denies dizziness, Denies frequent falls, Denies loss of vision, Denies numbness and Denies weakness Psychiatric Psychiatric: Denies anxiety, Denies behavioral changes, Denies confusion, Denies depression, Denies homicidal ideation and Denies suicidal ideation Endocrine Endocrine: Denies fatigue, Denies flushing and Denies palpitations Hematologic/Lymphatic Hematologic/Lymphatic: Denies easy bruising Allergic/Immunologic Allergic/Immunologic: Denies urticaria, Denies throat swelling and Denies wheezing Patient History Medical History Alcoholism Atrial fibrillation (2014) 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 Hypertension Lumbar spine pain Malignant neoplasm of prostate (11/09/11) Morbid obesity with body mass index (BMI) of 40.0 to 44.9 in adult (04/07/16) Shoulder pain Sleep apnea (2014) Stroke Tear of right glenoid labrum TIA (transient ischemic attack) Uncomplicated opioid dependence (04/07/16) Surgical History History of cancer surgery History of lumbosacral spine surgery (2013) Social History Smoking Status: Current every day smoker alcohol intake: former substance use type: does not use Smoking Status: Current every day smoker alcohol intake frequency: holidays/special occasions only Substance Use Type: does not use Exam Narrative Exam Narrative: GENERAL: [80] year old patient appears stated age. Well-nourished, well-developed patient, in mild distress. HEAD: Atraumatic. Normocephalic. EYES: Pupils equal round and reactive. Extraocular motions intact. No scleral icterus. No injection or drainage. ENT: Nose without bleeding, purulent drainage. Throat without erythema, tonsillar hypertrophy or exudate. Airway patent. NECK: Trachea midline. Non tender CARDIOVASCULAR: Regular rate and rhythm without murmurs, gallops, or rubs. RESPIRATORY: Clear to auscultation. Breath sounds equal bilaterally. No wheezes, rales, or rhonchi. GASTROINTESTINAL: Abdomen soft, non-tender, nondistended. EXTREMITIES: Right lower extremity erythema, swelling, warmth and tenderness, most notable on the dorsum of the right foot, anterior reagan though there is some pain in the palpation of the posterior calf and medial thigh. No circumferential erythema, no lymphangitis. BACK: Nontender without deformity or crepitance. No flank tenderness. NEURO: AOx3. SKIN: No rash or erythema of visible areas Initial Vital Signs Initial Vital Signs: Vital Signs Temperature 97.1 F L 04/15/21 16:30 Pulse Rate 82 04/15/21 16:30 Respiratory Rate 17 04/15/21 16:30 Blood Pressure 174/90 H 04/15/21 16:30 Pulse Oximetry 97 04/15/21 16:30 Course Orders Ordered: ED Orders 04/15/21 16:34 XR foot RT min 3V Stat 04/15/21 18:27 periph venous low extrem rt Stat 04/15/21 18:49 Basic Metabolic Panel Stat Complete Blood Count AUTO DIFF Stat Discontinued Medications Doxycycline Hyclate (Doxycycline Hyclate 100 Mg Tablet) 100 mg PO NOW ONE Stop: 04/15/21 19:45 Last Admin: 04/15/21 19:59 Dose: 100 mg Documented by: GERONIMO Vital Signs Vital signs: Vital Signs - 8 hr 04/15/21 20:03 Pulse Rate 78 Respiratory Rate 18 Blood Pressure 148/70 H Pulse Oximetry 97 MDM - Extremity (Nontraumatic) Lab Data Result diagrams: 04/15/21 18:49 04/15/21 18:49 Labs: Lab Results 04/15/21 04/15/21 Range/Units 18:49 18:49 WBC 12.6 H (4.5-11.0) X10^3/uL RBC 4.86 (4.5-5.9) X10^6/uL Hgb 14.2 (13.5-17.5) g/dL Hct 42.2 (41-53) % MCV 86.9 (80-100) fL MCH 29.3 (26-34) PG MCHC 33.7 (30-36) % RDW 13.1 (11.6-14.8) % Plt Count 261 (150-400) X10^3/uL Neut % (Auto) 58.5 (50-75) % Lymph % (Auto) 22.5 L (25-40) % Overton % (Auto) 11.2 (3-14) % Eos % (Auto) 7.3 H (2-4) % Baso % (Auto) 0.5 (0-2) % Neut # (Auto) 7400 H (6798-1352) /uL Lymph # (Auto) 2800 (8361-3162) /uL Overton # (Auto) 1400 H (0-900) /uL Eos # (Auto) 900 H (0-450) /uL Baso # (Auto) 100 (0-100) /uL Sodium 140 (137-145) mmol/L Potassium 4.0 (3.4-5.1) mmol/L Chloride 103 (98-107) mmol/L Carbon Dioxide 28 (22-32) mmol/L BUN 20 (9-20) mg/dL Creatinine 0.84 (0.66-1.25) mg/dL Estimated GFR > 60.0 (>60) mL/min BUN/Creatinine Ratio 23.8 H (6-22) Glucose 100 (80-110) mg/dL Calcium 10.4 H (8.4-10.2) mg/dL Imaging Data US - DVT: Radiologist's Impression: [address] [id number] ReportSigned Patient: Rosendo Atkins TMR#: [id number]: 2Acct:[id number]/Sex: 80 / MDate of Service: 04/15/21Loc: EDAccession Number: [id number] Procedure: US periph venous low extrem rt Ordering Provider: Ho Gonzalez D.O. PROCEDURE: US PERIPH VENOUS LOW EXTREM RT INDICATIONS: PAIN, REDNESS TECHNIQUE: Real-time imaging, as well as color and pulse Doppler interrogation, were performed of the lower extremity deep veins from the inguinal ligament to the popliteal fossa. COMPARISON: None. FINDINGS: The common femoral, femoral and popliteal veins are normally compressible, and free of intraluminal thrombus. Color and pulse Doppler demonstrate normal phasic intraluminal flow. There is normal augmentation response to distal compression maneuver. IMPRESSION: No evidence of right lower extremity DVT. Dictated by: Pernell Zaragoza M.D. on 04/15/2021 at 19:36 Approved by: Pernell Zaragoza M.D. on 04/15/2021 at 19:[address] [facility] Narrative Medical decision making narrative: Multiple diagnoses including DVT versus cellulitis versus other considered. DVT thought unlikely given lack of findings on ultrasound. Cellulitis considered most likely given history, physical and elevated white blood cell count Patient with reassuring vital signs and labs, no signs of sepsis, appropriate for discharge. Findings and discharge diagnosis discussed with patient/family followed by verbalization of understanding Return precautions discussed with patient/family whom verbalize understanding. Discharge Plan Departure Patient Disposition: Home Clinical Impression: Cellulitis Qualifiers: Site of cellulitis: extremity Site of cellulitis of extremity: lower extremity Laterality: right Qualified Code(s): L03.115 - Cellulitis of right lower limb Instructions: DI for Cellulitis -- Adult Activity Restrictions/Additional Instructions: *You have been diagnosed with [right lower extremity cellulitis. Labs are very reassuring, ultrasound showed no clot] *What to do: *Please continue to take your regular medications as directed. [x ] New medication prescriptions sent to your pharmacy: [ [facility] in [place]] [ ] New medication written as a paper prescription [ ] No new medications given *Please follow up with your primary care provider in 2-3 days, call for an appointment. Let them know you were seen in the Emergency Department and that we ask that you be seen in follow up. We will electronically transmit a record of today's note if your PCP is in our system *If you do not have a primary care provider please contact the [facility] Resource line at [phone]. They will ask some questions about your medical history and help get you set up with a doctor in the community. *Return to Emergency Department if you should have any new, worsening or concerning symptoms, such as [fever greater than 101 F, shaking chills, worsening pain, persistent vomiting or other bothersome symptoms] Prescriptions: New doxycycline hyclate 100 mg tablet 100 mg PO BID Qty: 20 RF: 0 No Action diclofenac sodium 100 mg tablet extended release 24 hr 100 mg PO DAILY Qty: 90 RF: 3 (DME) Parking Permit... See Rx Instructions .ROUTE .MEDSUPPLY Qty: 1 RF: 0 hydrochlorothiazide 25 mg tablet 25 mg PO QDAY Qty: 90 RF: 3 atorvastatin 10 mg tablet 10 mg PO BEDTIME Qty: 90 RF: 3 amlodipine 10 mg tablet 10 mg PO DAILY Qty: 90 RF: 3 acetaminophen 500 mg tablet 1,000 mg PO Q6H Qty: 240 RF: 11 loratadine [Allergy Relief (loratadine)] 10 mg tablet 10 mg PO DAILY Qty: 90 RF: 3 metoprolol tartrate [Lopressor] 100 mg tablet 100 mg PO BID Qty: 180 RF: 3 mirtazapine 15 mg tablet 15 mg PO DAILY Qty: 90 RF: 3 omeprazole 20 mg capsule,delayed release(DR/EC) 20 mg PO DAILY Qty: 90 RF: 3 Xarelto 20 mg tablet 20 mg PO QDAY Qty: 90 RF: 3 Referrals: Rosendo Armando MD [Primary Care Provider] -
--- NOTE | 2021-04-15 18:27 | DI.US.S_ITS ---
PROCEDURE: US PERIPH VENOUS LOW EXTREM RT INDICATIONS: PAIN, REDNESS TECHNIQUE: Real-time imaging, as well as color and pulse Doppler interrogation, were performed of the lower extremity deep veins from the inguinal ligament to the popliteal fossa. COMPARISON: None. FINDINGS: The common femoral, femoral and popliteal veins are normally compressible, and free of intraluminal thrombus. Color and pulse Doppler demonstrate normal phasic intraluminal flow. There is normal augmentation response to distal compression maneuver. IMPRESSION: No evidence of right lower extremity DVT. Dictated by: Pernell Zaragoza M.D. on 04/15/2021 at 19:36 Approved by: Pernell Zaragoza M.D. on 04/15/2021 at 19:36
[2021-04-15 18:53] LABS: Add Manual Diff / Slide Review NO; Basophils Absolute Auto 100 /uL (0-100); Basophils Percent Auto 0.5 % (0-2); Eosinophils Absolute Auto 900 /uL (0-450); Eosinophils Percent Auto 7.3 % (2-4); Hematocrit 42.2 % (41-53); Hemoglobin 14.2 g/dL (13.5-17.5); Lymphocytes Absolute Auto 2800 /uL (1100-4500); Lymphocytes Percent Auto 22.5 % (25-40); Mean Corpuscular HGB Conc 33.7 % (30-36); Mean Corpuscular Hemoglobin 29.3 PG (26-34); Mean Corpuscular Volume 86.9 fL (80-100); Monocytes Absolute Auto 1400 /uL (0-900); Monocytes Percent Auto 11.2 % (3-14); Neutrophils Absolute Auto 7400 /uL (1500-7000); Neutrophils Percent Auto 58.5 % (50-75); Platelet Count 261 X10^3/uL (150-400); Red Blood Cell Count 4.86 X10^6/uL (4.5-5.9); Red Cell Distribution Width 13.1 % (11.6-14.8); White Blood Cell Count 12.6 X10^3/uL (4.5-11.0)
[2021-04-15 19:08] LABS: BUN Creatinine Ratio 23.8 (6-22); Blood Urea Nitrogen 20 mg/dL (9-20); Calcium 10.4 mg/dL (8.4-10.2); Carbon Dioxide 28 mmol/L (22-32); Chloride 103 mmol/L (98-107); Estimated Glomerular Filt Rate > 60.0 mL/min (>60); Glucose 100 mg/dL (80-110); HEMOLYSIS < 15 (0-50); Sodium 140 mmol/L (137-145)
[2021-04-15] MEDS: DOXYCYCLINE HYCLATE 100 MG TABLET PO (19:59)
[2021-04-15 20:03] VITALS: BP 148/70; PULSE 78; RESP 18; O2SAT 97
== END 2021-04-15 20:04 | disposition home or self-care (01) ==
PROVIDERS: Emergency Provider Emergency Medicine; PCP Student in an Organized Health Care Education/Training Program
DX: L03.115 Cellulitis of right lower limb (principal)
CPT/HCPCS: 73630; 80048; 85025; 93971; 99283; 99284

== ENCOUNTER → 2021-08-03 13:28 | Outpatient (CLI) | payer MEDICARE, SELFPAY ==
--- NOTE | 2021-08-03 13:31 | DI.RAD.S_ITS ---
PROCEDURE: XR SHOULDER LT MIN 2V INDICATIONS: Left shoulder fracture TECHNIQUE: 2 views of the shoulder were acquired. COMPARISON: Outside Facility, RG, CT THORAX W/O CONTRAST, 07/11/2021, 19:01. [facility], CR, SHOULDER MINIMUM 2VIEW RIGHT, 09/28/2015, 19:20. [facility], , SHOULDER MINIMUM 2VIEW RIGHT, 10/27/2011, 11:28. Outside Facility, RG, XR SHOULDER 2V LEFT, 07/11/2021, 18:47. FINDINGS: Bones: Impacted fracture of the left humeral head. The fracture line is less conspicuous. The alignment appears unchanged. No glenohumeral joint dislocation. Advanced degenerative change. No suspicious bony lesions. Visualized ribs appear intact. Soft tissues: No suspicious soft tissue calcifications. IMPRESSION: Impacted fracture of the left humeral head is similar. Advanced degenerative change. Dictated by: Chava Ellis M.D. on 08/03/2021 at 14:33 Approved by: Chava Ellis M.D. on 08/03/2021 at 14:36
== END ==
PROVIDERS: PCP Student in an Organized Health Care Education/Training Program; Referring Provider Student in an Organized Health Care Education/Training Program; Visit Provider Student in an Organized Health Care Education/Training Program
DX: S42.292D Other displaced fracture of upper end of left humerus, subsequent encounter for fracture with routine healing (principal)
CPT/HCPCS: 73030

== ENCOUNTER → 2021-10-20 10:31 | Outpatient (CLI) | payer MEDICARE, MEDICAID, SELFPAY ==
--- NOTE | 2021-10-20 10:40 | DI.CT.S_ITS ---
PROCEDURE: CT UE LT WO CON INDICATIONS: Fracture of left shoulder girdle, part unspecified TECHNIQUE: Noncontrast 1-1.5 mm thick sections acquired from the acromioclavicular joint to the inferior scapula, with coronal and sagittal reformatting. COMPARISON: [facility] [place], CR, XR SHOULDER 2+ VIEWS LEFT, 10/14/2021, 10:32. FINDINGS: Image quality: Excellent. Bones: A comminuted fracture of the humeral head/neck junction is again demonstrated with evidence of intra osseous hematoma. Prominent osteophytosis about the glenohumeral articulation. The remaining visualized osseous structures appear maintained. Moderate arthrosis of the AC joint. Soft tissues: Glenohumeral hemarthrosis. Edema about the fracture site. IMPRESSION: 1. Comminuted fracture of the humeral head/neck junction as detailed above. Dictated by: Daryl Chambers M.D. on 10/20/2021 at 10:55 Approved by: Daryl Chambers M.D. on 10/20/2021 at 11:06
== END ==
PROVIDERS: PCP Student in an Organized Health Care Education/Training Program; Referring Provider Orthopaedic Surgery; Visit Provider Orthopaedic Surgery
DX: S42.92XA Fracture of left shoulder girdle, part unspecified, initial encounter for closed fracture (principal); M19.012 Primary osteoarthritis, left shoulder; X58.XXXA Exposure to other specified factors, initial encounter
CPT/HCPCS: 73200

== ENCOUNTER → 2021-11-30 14:58 | Outpatient (CLI) | payer OTHER, MEDICAID, SELFPAY ==
[2021-11-30 15:53] LABS: Add Manual Diff / Slide Review NO; Basophils Absolute Auto 100 /uL (0-100); Basophils Percent Auto 0.6 % (0-2); Eosinophils Absolute Auto 400 /uL (0-450); Eosinophils Percent Auto 4.2 % (2-4); Hematocrit 39.9 % (41-53); Hemoglobin 13.2 g/dL (13.5-17.5); Lymphocytes Absolute Auto 2300 /uL (1100-4500); Lymphocytes Percent Auto 24.8 % (25-40); Mean Corpuscular Hemoglobin 26.5 PG (26-34); Mean Corpuscular Volume 80.5 fL (80-100); Monocytes Absolute Auto 1200 /uL (0-900); Monocytes Percent Auto 13.7 % (3-14); Neutrophils Absolute Auto 5200 /uL (1500-7000); Neutrophils Percent Auto 56.7 % (50-75); Platelet Count 250 X10^3/uL (150-400); Red Blood Cell Count 4.96 X10^6/uL (4.5-5.9); Red Cell Distribution Width 16.3 % (11.6-14.8); White Blood Cell Count 9.1 X10^3/uL (4.5-11.0)
[2021-11-30 16:07] LABS: Hemoglobin A1C% w Est Avg Glu 6.2 % (4.0-6.0)
[2021-11-30 16:43] LABS: Alanine Aminotransferase 13 IU/L (<50); Albumin 4.4 g/dL (3.5-5.0); Albumin Globulin Ratio 1.2 (1.0-2.8); Alkaline Phosphatase 88 U/L (38-126); Aspartate Aminotransferase 27 IU/L (17-59); BUN Creatinine Ratio 22.8 (6-22); Bilirubin Total 0.5 mg/dL (0.2-1.3); Blood Urea Nitrogen 26 mg/dL (9-20); Calcium 9.5 mg/dL (8.4-10.2); Carbon Dioxide 28 mmol/L (22-32); Chloride 104 mmol/L (98-107); Estimated Glomerular Filt Rate > 60.0 mL/min (>60); Globulin 3.6 g/dL (1.7-4.1); Glucose 87 mg/dL (80-110); HEMOLYSIS < 15 (0-50); Sodium 141 mmol/L (137-145)
[2021-11-30 17:04] LABS: Vitamin D 25 Hydroxy (D3) 24.4 ng/mL (30.0-100.0)
[2021-11-30 17:12] LABS: Prostate Specific Antigen 1.27 ng/mL (0.10-4.00)
== END ==
PROVIDERS: PCP Student in an Organized Health Care Education/Training Program; Referring Provider Student in an Organized Health Care Education/Training Program; Visit Provider Student in an Organized Health Care Education/Training Program
DX: I10 Essential (primary) hypertension (principal); Z01.810 Encounter for preprocedural cardiovascular examination; Z85.46 Personal history of malignant neoplasm of prostate; E55.9 Vitamin D deficiency, unspecified; E66.9 Obesity, unspecified
CPT/HCPCS: 36415; 80053; 82306; 83036; 84153; 85025

== ENCOUNTER → 2022-01-21 13:37 | Outpatient (CLI) | payer OTHER, SELFPAY ==
--- NOTE | 2022-01-21 13:39 | DI.RAD.S_ITS ---
PROCEDURE: XR SHOULDER RT MIN 2V INDICATIONS: DJD of right shoulder TECHNIQUE: 3 views of the shoulder were acquired. COMPARISON: [facility], CR, XR SHOULDER LT MIN 2V, 08/03/2021, 13:26. FINDINGS: Bones: Moderate callus formation surrounding the humeral head is present. Soft tissues: No suspicious soft tissue calcifications. IMPRESSION: Healed humeral fracture. Dictated by: Pernell Zaragoza M.D. on 01/21/2022 at 15:09 Approved by: Pernell Zaragoza M.D. on 01/21/2022 at 15:09
--- NOTE | 2022-01-21 13:39 | DI.RAD.S_ITS ---
PROCEDURE: XR FOREARM LT 2V INDICATIONS: Left forearm edema, pain, post-traumatic TECHNIQUE: 2 views of the forearm were acquired. COMPARISON: None. FINDINGS: Bones: No fractures or dislocations. Osteoarthritic changes along radial aspect of left wrist are seen. No suspicious bony lesions. Soft tissues: No suspicious soft tissue calcifications or masses. IMPRESSION: No forearm fracture or dislocation. 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 Dictated by: Sandeep Ballard M.D. on 01/21/2022 at 16:21 Approved by: Sandeep Ballard M.D. on 01/21/2022 at 16:22
== END ==
PROVIDERS: PCP Student in an Organized Health Care Education/Training Program; Referring Provider Student in an Organized Health Care Education/Training Program; Visit Provider Student in an Organized Health Care Education/Training Program
DX: M19.032 Primary osteoarthritis, left wrist (principal); M25.511 Pain in right shoulder; M79.632 Pain in left forearm; Z87.81 Personal history of (healed) traumatic fracture
CPT/HCPCS: 73030; 73090

== ENCOUNTER 2022-03-10 19:16 | Emergency (ER) | payer OTHER, SELFPAY ==
[2022-03-10] VITALS (21 sets, daily range): BP systolic 108–171; BP diastolic 59–149; PULSE 88–145; RESP 16–47; TEMP 37.3; O2SAT 91–98
--- NOTE | 2022-03-10 19:25 | DI.RAD.S_ITS ---
PROCEDURE: XR ACUTE ABDOMEN SERIES INDICATIONS: N/V/D, cough, SOB TECHNIQUE: One view chest and two views of the abdomen were acquired. COMPARISON: None. FINDINGS: Surgical changes and devices: Lumbar spine fixation hardware. Chest: Lungs are clear. Heart is enlarged. No pleural effusions. No pneumoperitoneum. Abdomen: Bowel gas pattern is nonspecific with paucity of gas in the small bowel. No suspicious calcifications. Visualized solid organ contours appear normal. Bones: No suspicious bony lesions. IMPRESSION: Nonspecific bowel gas pattern without definite evidence of obstruction. No acute cardiopulmonary disease process. Dictated by: Laura Mc MD, PhD on 03/10/2022 at 19:52 Approved by: Laura Mc MD, PhD on 03/10/2022 at 19:53
[2022-03-10 19:41] LABS: Add Manual Diff / Slide Review NO; Basophils Absolute Auto 100 /uL (0-100); Basophils Percent Auto 0.4 % (0-2); Eosinophils Absolute Auto 0 /uL (0-450); Hematocrit 40.3 % (41-53); Hemoglobin 13.1 g/dL (13.5-17.5); Lymphocytes Absolute Auto 1300 /uL (1100-4500); Lymphocytes Percent Auto 7.1 % (25-40); Mean Corpuscular HGB Conc 32.6 % (30-36); Mean Corpuscular Hemoglobin 26.5 PG (26-34); Mean Corpuscular Volume 81.2 fL (80-100); Monocytes Absolute Auto 1900 /uL (0-900); Monocytes Percent Auto 10.3 % (3-14); Neutrophils Absolute Auto 15100 /uL (1500-7000); Neutrophils Percent Auto 82.2 % (50-75); Platelet Count 278 X10^3/uL (150-400); Red Blood Cell Count 4.96 X10^6/uL (4.5-5.9); Red Cell Distribution Width 15.7 % (11.6-14.8); White Blood Cell Count 18.4 X10^3/uL (4.5-11.0)
--- NOTE | 2022-03-10 19:42 | ED.NAVMDI ---
HPI - Nausea/Vomiting/Diarrhea General Chief complaint: Nausea/Vomiting/Diarrhea Stated complaint: NVD Time Seen by Provider: 03/10/22 19:21 History of Present Illness HPI Narrative: 81-year-old male smoker, former alcohol abuse, AFib on Xarelto with history of frequent falls presents by EMS for evaluation of a ground level fall with no reported injury. He is a poor historian but states he does not know exactly why he fell but he has had some nausea vomiting and diarrhea for the past few days. He denies fever or chills. He has had a little bit of a cough but denies any chest pain or shortness of breath. He denies fever or shaking chills. He has no new medications or dietary change. He denies exposure to other ill persons and is fully vaccinated against COVID. He states he did not hit his head and has no neck pain. Related Data Previous Rx's Medication Instructions Recorded loratadine 10 mg tablet (Allergy 10 mg PO DAILY #90 tab 12/04/20 Relief (loratadine)) docusate sodium 100 mg capsule 100 mg PO BID #60 cap 08/03/21 amlodipine 10 mg tablet 10 mg PO DAILY #90 tab 10/21/21 atorvastatin 10 mg tablet 10 mg PO BEDTIME #90 tab 10/21/21 hydrochlorothiazide 25 mg tablet 25 mg PO QDAY #90 tab 10/21/21 metoprolol tartrate 100 mg tablet 100 mg PO BID #180 tab 10/21/21 (Lopressor) mirtazapine 15 mg tablet 15 mg PO DAILY #90 tab 10/21/21 omeprazole 20 mg capsule,delayed 20 mg PO DAILY #90 cap 10/21/21 release rivaroxaban 20 mg tablet (Xarelto) 20 mg PO DAILY #90 tab 10/21/21 acetaminophen 325 mg tablet 650 mg PO Q6H #240 tab 01/18/22 Allergies Allergy/AdvReac Type Severity Reaction Status Date / Time No Known Drug Allergies Allergy Verified 01/18/22 16:50 Review of Systems Review of Systems Narrative: GENERAL: Denies chills, fatigue, malaise, fever, sweats. HEENT: Denies sinus pain, ear pain, sore throat, difficulty swallowing, dizziness. RESPIRATORY: Denies dyspnea, cough, wheezing, hemoptysis, sputum. CARDIOVASCULAR: Denies chest pain, palpitations, orthopnea, edema, GASTROINTESTINAL: See HPI : Denies dysuria, frequency, incontinence, hematuria, urinary retention. MUSCULOSKELETAL: denies weakness, joint pain, or bony pain SKIN: Denies rash, skin lesions, or other NEUROLOGIC: Denies weakness, headache, numbness, change in speech, confusion, seizures, incoordination. PSYCHIATRIC: No concerning psychosocial issues. 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 History of prostate cancer Hypertension Lumbar spine pain Malignant neoplasm of prostate (11/09/11) Morbid obesity with body mass index (BMI) of 40.0 to 44.9 in adult (04/07/16) Shoulder pain Sleep apnea (2014) Stroke Tear of right glenoid labrum TIA (transient ischemic attack) Uncomplicated opioid dependence (04/07/16) Surgical History History of cancer surgery History of lumbosacral spine surgery (2013) Social History Smoking Status: Current every day smoker alcohol intake: former substance use type: does not use Smoking Status: Current every day smoker alcohol intake frequency: holidays/special occasions only Substance Use Type: does not use Exam Narrative Exam Narrative: GENERAL: [81] year old patient appears stated age. Well-developed patient, in mild distress. GCS 14 (confused). HEAD: Atraumatic. Normocephalic. No hematoma, abrasion or evidence of depressed skull fracture EYES: Pupils equal round and reactive. No hyphema. Extraocular motions intact. No scleral icterus. No injection or drainage. ENT: Nose without bleeding, purulent drainage. Throat without erythema, tonsillar hypertrophy or exudate. Airway patent. NECK: Trachea midline. Non tender CARDIOVASCULAR: Regular rate and rhythm without murmurs, gallops, or rubs. RESPIRATORY: Clear to auscultation. Breath sounds equal bilaterally. No wheezes, rales, or rhonchi. GASTROINTESTINAL: Abdomen soft, non-tender, nondistended. EXTREMITIES: No edema or joint tenderness. BACK: Nontender without deformity or crepitance. No flank tenderness. NEURO: AOx3. SKIN: No rash or erythema of visible areas Initial Vital Signs Initial Vital Signs: Vital Signs Pulse Rate 95 H 03/10/22 19:20 Blood Pressure 108/59 L 03/10/22 19:20 Pulse Oximetry 93 03/10/22 19:20 Course Orders Ordered: ED Orders 03/10/22 19:25 XR acute abdomen series Stat 03/10/22 19:30 Complete Blood Count AUTO DIFF Stat Comprehensive Metabolic Panel Stat Covid-19 + FLU A/B by PCR Stat D Dimer Stat Lactate (Lactic Acid) Stat Lipase Stat NT-proBNP (BNP-Adult 18+) Stat Prothrombin Time INR Stat Troponin & CK Cardiac Panel Stat 03/10/22 19:50 Blood Culture Stat 03/10/22 20:14 EKG-12 Lead Stat 03/10/22 20:52 CT head/brain wo con Stat 03/10/22 21:43 CT angio head Stat 03/10/22 21:44 CT cervical spine wo con Stat Discontinued Medications Sodium Chloride (Normal Saline 0.9%) 1,000 mls @ 1,000 mls/hr IV BOLUS ONE Stop: 03/10/22 20:23 Last Infusion: 03/10/22 22:33 Dose: 0 mls/hr Documented by: Admin: 03/10/22 19:55 Dose: 1,000 mls/hr Documented by: AMANDA Levofloxacin (Levaquin) 750 mg in 150 mls @ 100 mls/hr IV NOW ONE Stop: 03/10/22 21:31 Last Infusion: 03/10/22 22:14 Dose: 0 mls/hr Documented by: Admin: 03/10/22 20:09 Dose: 100 mls/hr Documented by: EASTON Prothrombin Complex Concent ( Human) 2,500 unit/Miscellaneous 100 mls @ 816.466 mls/hr IV NOW ONE; Protocol Stop: 03/10/22 21:55 Last Admin: 03/10/22 22:40 Dose: Not Given Documented by: GO Nicardipine HCl 25 mg/ Sodium (Chloride) 250 mls @ 50 mls/hr IV TITRATE TANNER; Protocol Last Titration: 03/10/22 22:47 Dose: 0 mg/hr, 0 mls/hr Documented by: Admin: 03/10/22 22:18 Dose: 5 mg/hr, 50 mls/hr Documented by: AMANDA Ondansetron HCl (Ondansetron 4 Mg/2 Ml Inj) 4 mg IV NOW ONE Stop: 03/10/22 19:25 Last Admin: 03/10/22 19:55 Dose: 4 mg Documented by: AMANDA Pantoprazole Sodium (Pantoprazole 40 Mg Vial) 40 mg IV NOW ONE Stop: 03/10/22 19:25 Last Admin: 03/10/22 19:55 Dose: 40 mg Documented by: AMANDA Consultations Consultation #1: discussed with [facility] (Bruna) who is happy to accept. Requests BP < 160, KCentra if we can get it and CT Angio of head Vital Signs Vital signs: Vital Signs - 8 hr 03/10/22 20:20 03/10/22 20:30 03/10/22 20:31 Pulse Rate 92 H 94 H Respiratory Rate 32 H 30 H Blood Pressure 124/77 Pulse Oximetry 95 92 91 03/10/22 20:45 03/10/22 21:17 03/10/22 21:18 Pulse Rate 90 95 H 92 H Respiratory Rate 33 H 27 H 30 H Blood Pressure 143/75 H Pulse Oximetry 92 95 95 03/10/22 21:30 03/10/22 21:31 03/10/22 21:40 Pulse Rate 89 105 H 145 H Respiratory Rate 29 H 47 H Blood Pressure 171/149 H 129/84 Pulse Oximetry 98 94 96 03/10/22 21:45 03/10/22 21:50 03/10/22 22:04 Pulse Rate 94 H 96 H 93 H Respiratory Rate 33 H 41 H Blood Pressure 149/77 H Pulse Oximetry 96 96 03/10/22 22:06 03/10/22 22:07 03/10/22 22:17 Pulse Rate 95 H 96 H 93 H Respiratory Rate 35 H 29 H Blood Pressure 161/100 H 163/73 H 170/80 H Pulse Oximetry 95 95 94 03/10/22 22:20 Pulse Rate 93 H Respiratory Rate 30 H Blood Pressure 142/73 H Pulse Oximetry 96 MDM - Nausea/Vomiting/Diarrhea Lab Data Result diagrams: 03/10/22 19:30 03/10/22 19:30 Labs: Lab Results 03/10/22 03/10/22 03/10/22 Range/Units 19:30 19:30 19:30 WBC 18.4 H (4.5-11.0) X10^3/uL RBC 4.96 (4.5-5.9) X10^6/uL Hgb 13.1 L (13.5-17.5) g/dL Hct 40.3 L (41-53) % MCV 81.2 (80-100) fL MCH 26.5 (26-34) PG MCHC 32.6 (30-36) % RDW 15.7 H (11.6-14.8) % Plt Count 278 (150-400) X10^3/uL Neut % (Auto) 82.2 H (50-75) % Lymph % (Auto) 7.1 L (25-40) % [place] % (Auto) 10.3 (3-14) % Eos % (Auto) 0.0 L (2-4) % Baso % (Auto) 0.4 (0-2) % Neut # (Auto) 77578 H (0188-7132) /uL Lymph # (Auto) 1300 (4481-5639) /uL [place] # (Auto) 1900 H (0-900) /uL Eos # (Auto) 0 (0-450) /uL Baso # (Auto) 100 (0-100) /uL PT (10.1-12.7) SECONDS INR (0.9-1.3) D-Dimer (<230) ng/mL Sodium 139 (137-145) mmol/L Potassium 3.3 L (3.4-5.1) mmol/L Chloride 100 (98-107) mmol/L Carbon Dioxide 23 (22-32) mmol/L BUN 24 H (9-20) mg/dL Creatinine 1.39 H (0.66-1.25) mg/dL Estimated GFR 51 L (>60) mL/min BUN/Creatinine Ratio 17.3 (6-22) Glucose 150 H (80-110) mg/dL Lactate (0.7-2.1) mmol/L Calcium 9.8 (8.4-10.2) mg/dL Total Bilirubin 1.2 (0.2-1.3) mg/dL AST 26 (17-59) IU/L ALT 15 (<50) IU/L Alkaline Phosphatase 69 (38-126) U/L Total Creatine Kinase 75 (55-170) U/L CK-MB (CK-2) TNP CK-MB (CK-2) Rel Index TNP Troponin I 0.024 (0.01-0.034) ng/mL NT-Pro-B Natriuret Pep 1080 H (<450) pg/mL Total Protein 8.3 H (6.3-8.2) g/dL Albumin 4.5 (3.5-5.0) g/dL Globulin 3.8 (1.7-4.1) g/dL Albumin/Globulin Ratio 1.2 (1.0-2.8) Lipase 68 (23-300) U/L SARS-CoV-2 (PCR) (Negative) Influenza A (RT-PCR) (NEGATIVE) Influenza B (RT-PCR) (NEGATIVE) 03/10/22 03/10/22 03/10/22 Range/Units 19:30 19:30 19:30 WBC (4.5-11.0) X10^3/uL RBC (4.5-5.9) X10^6/uL Hgb (13.5-17.5) g/dL Hct (41-53) % MCV (80-100) fL MCH (26-34) PG MCHC (30-36) % RDW (11.6-14.8) % Plt Count (150-400) X10^3/uL Neut % (Auto) (50-75) % Lymph % (Auto) (25-40) % [place] % (Auto) (3-14) % Eos % (Auto) (2-4) % Baso % (Auto) (0-2) % Neut # (Auto) (6445-8821) /uL Lymph # (Auto) (3815-4898) /uL [place] # (Auto) (0-900) /uL Eos # (Auto) (0-450) /uL Baso # (Auto) (0-100) /uL PT (10.1-12.7) SECONDS INR (0.9-1.3) D-Dimer 360 H (<230) ng/mL Sodium (137-145) mmol/L Potassium (3.4-5.1) mmol/L Chloride (98-107) mmol/L Carbon Dioxide (22-32) mmol/L BUN (9-20) mg/dL Creatinine (0.66-1.25) mg/dL Estimated GFR (>60) mL/min BUN/Creatinine Ratio (6-22) Glucose (80-110) mg/dL Lactate 4.2 H* (0.7-2.1) mmol/L Calcium (8.4-10.2) mg/dL Total Bilirubin (0.2-1.3) mg/dL AST (17-59) IU/L ALT (<50) IU/L Alkaline Phosphatase (38-126) U/L Total Creatine Kinase (55-170) U/L CK-MB (CK-2) CK-MB (CK-2) Rel Index Troponin I (0.01-0.034) ng/mL NT-Pro-B Natriuret Pep (<450) pg/mL Total Protein (6.3-8.2) g/dL Albumin (3.5-5.0) g/dL Globulin (1.7-4.1) g/dL Albumin/Globulin Ratio (1.0-2.8) Lipase (23-300) U/L SARS-CoV-2 (PCR) Negative (Negative) Influenza A (RT-PCR) Flu a negative (NEGATIVE) Influenza B (RT-PCR) Flu b negative (NEGATIVE) 03/10/22 03/10/22 Range/Units 19:30 22:15 WBC (4.5-11.0) X10^3/uL RBC (4.5-5.9) X10^6/uL Hgb (13.5-17.5) g/dL Hct (41-53) % MCV (80-100) fL MCH (26-34) PG MCHC (30-36) % RDW (11.6-14.8) % Plt Count (150-400) X10^3/uL Neut % (Auto) (50-75) % Lymph % (Auto) (25-40) % [place] % (Auto) (3-14) % Eos % (Auto) (2-4) % Baso % (Auto) (0-2) % Neut # (Auto) (1334-3745) /uL Lymph # (Auto) (6968-4371) /uL [place] # (Auto) (0-900) /uL Eos # (Auto) (0-450) /uL Baso # (Auto) (0-100) /uL PT 26.2 H (10.1-12.7) SECONDS INR 2.3 H (0.9-1.3) D-Dimer (<230) ng/mL Sodium (137-145) mmol/L Potassium (3.4-5.1) mmol/L Chloride (98-107) mmol/L Carbon Dioxide (22-32) mmol/L BUN (9-20) mg/dL Creatinine (0.66-1.25) mg/dL Estimated GFR (>60) mL/min BUN/Creatinine Ratio (6-22) Glucose (80-110) mg/dL Lactate 1.1 (0.7-2.1) mmol/L Calcium (8.4-10.2) mg/dL Total Bilirubin (0.2-1.3) mg/dL AST (17-59) IU/L ALT (<50) IU/L Alkaline Phosphatase (38-126) U/L Total Creatine Kinase (55-170) U/L CK-MB (CK-2) CK-MB (CK-2) Rel Index Troponin I (0.01-0.034) ng/mL NT-Pro-B Natriuret Pep (<450) pg/mL Total Protein (6.3-8.2) g/dL Albumin (3.5-5.0) g/dL Globulin (1.7-4.1) g/dL Albumin/Globulin Ratio (1.0-2.8) Lipase (23-300) U/L SARS-CoV-2 (PCR) (Negative) Influenza A (RT-PCR) (NEGATIVE) Influenza B (RT-PCR) (NEGATIVE) Imaging Data CT scan - head: Radiologist's Impression: Rosendo Atkins??81??M??1940 ? Allergy/Adv: No Known Drug Allergies (More??) Close Head CT (Signed) Mario Mcgee - 03/10/22 Chest/Abdomen X-ray (Signed) Laura Mc - 03/10/22 Shoulder X-Ray (Signed) Pernell Zaargoza - 01/21/22 Forearm X-Ray (Signed) Sandeep Ballard - 01/21/[address] (Signed) Daryl Chambers - 10/20/21 Shoulder X-Ray (Signed) Juan Ellisn - 08/03/21 Vascular Ultrasound (Signed) Pernell Zaragoza - 04/15/21 Foot X-Ray (Signed) Swathi Callahane - 04/15/[address] (Signed) [place] - 03/12/19 Chest X-Ray (Signed) Shawn Shepard - 02/13/19 Chest X-Ray (Signed) Sathish James - 01/22/19 Radiology - Historical 10/21/16 Radiology - Historical 10/21/16 Radiology - Historical 10/21/16 Radiology - Historical 10/20/16 Launch?[place] [address] CT Scan Report Signed Patient: Rosendo Atkins MR#: [id number] : 1940 Acct:[id number] Age/Sex: 81 / M Date of Service: 03/10/22 Loc: ED Accession Number: [id number] ?? Procedure: CT head/brain wo con Ordering Provider: Ho Gonzalez D.O. PROCEDURE:? CT HEAD/BRAIN WO CON ? INDICATIONS:? fall, on blood thinners, possible head injury ? TECHNIQUE:? Noncontrast 4.5 mm thick angled axial sections acquired from the foramen magnum to the vertex, with coronal and sagittal reformats.? For radiation dose reduction, the following was used:? automated exposure control, adjustment of mA and/or kV according to patient size.? ? COMPARISON:? [facility], CT, HEAD WITHOUT CONTRAST, 12/05/2017, 12:59. ? FINDINGS:? Large volume intraventricular hemorrhage filling most of the right lateral ventricular body, frontal horn, and atrium.? Smaller volume hemorrhage layers in the occipital horns. ?The basilar cisterns are patent.? There is no evidence of ventricular obstruction or obstructive hydrocephalus.? Global cerebral volume loss with passive expansion of the ventricular system and extra-axial spaces.? Remote left parietal infarct redemonstrated.? Moderate chronic microvascular ischemic changes.? No acute orbital abnormality.? Paranasal sinuses and mastoid air cells are predominantly clear. ? IMPRESSION:? Large volume intraventricular hemorrhage.? Findings discussed with Dr. Gonzalez at time of dictation. ? ? Dictated by: Mario Mcgee M.D. on 03/10/2022 at 21:20 ? ? Approved by: Mario Mcgee M.D. on 03/10/2022 at 21:23 ? CTA Head: Radiologist's Impression: Launch?[place] [address] CT Scan Report Signed Patient: Rosendo Atkins MR#: [id number] : 1940 Acct:[id number] Age/Sex: 81 / M Date of Service: 03/10/22 Loc: ED Accession Number: [id number] ?? Procedure: CT angio head Ordering Provider: Ho Gonzalez D.O. PROCEDURE:? CT ANGIO HEAD ? INDICATIONS:? Fall on blood thinners ? TECHNIQUE:? After the administration of intravenous contrast, 1 mm thick sections acquired through the [place] of [place].? Postcontrast 4.5 mm thick sections then re-acquired from the foramen magnum to the vertex.? 10 mm thick yfpmbcl-jvvecvbzk-gqqjfgwchq (MIP) reformats were acquired of the central intracranial vasculature.? For radiation dose reduction, the following was used:? automated exposure control, adjustment of mA and/or kV according to patient size.? ? ? COMPARISON:? [facility], CT, CT HEAD/BRAIN WO CON, 03/10/2022, 21:04. ? FINDINGS:? Image quality:? Excellent.? ? Anterior circulation:? Intracranial internal carotid arteries are normal in size and flow.? The flow within the paired anterior cerebral arteries is normal and symmetric.? The flow within the middle cerebral arteries is normal and symmetric.? The anterior communicating artery is seen.? No aneurysms are seen.? ? Posterior circulation:? Visualized portions of the vertebral arteries demonstrate normal caliber, and join to form a normal appearing basilar artery.? Flow within the posterior cerebral arteries is normal and symmetric.? No aneurysms are seen.? ? Brain:? Large quantity of right lateral ventricle hemorrhage is again seen.? Small amount of hemorrhage layers dependently in the left occipital horn.? There is a moderate size area of infarct in the left posterior parieto-occipital region ? IMPRESSION:? ? 1. Surface of intraventricular hemorrhage is not identified.? This may be due to occult posttraumatic venous injury. ? 2. Fairly stable size of mainly right lateral intraventricular hematoma with small amount of bilateral posterior horn intraventricular hemorrhage. ? 3. Note of moderate prior infarct in the left parieto-occipital region.? ? Dictated by: Lashawn Forte M.D. on 03/10/2022 at 22:57 ? ? Approved by: Lashawn Forte M.D. on 03/10/2022 at 23:08? CT - cervical spine: Radiologist's Impression: [address] [address] [address] Scan Report Signed Patient: Rosendo Atkins MR#: [id number] : 1940 Acct:[id number] Age/Sex: 81 / M Date of Service: 03/10/22 Loc: ED Accession Number: [id number] ?? Procedure: CT cervical spine wo con Ordering Provider: Ho Gonzalez D.O. PROCEDURE:? CT CERVICAL SPINE WO CON ? INDICATIONS:? Trauma, fall ? TECHNIQUE:? Noncontrast 3 mm thick sections acquired from the skull base to the T4 level.? Sagittal and coronal reformats were then constructed.? For radiation dose reduction, the following was used:? automated exposure control, adjustment of mA and/or kV according to patient size.? ? COMPARISON:? None. ? FINDINGS:? Image quality:? Excellent.? ? Bones:? No fracture identified.? Alignment is within normal limits.? Likely degenerative anterolisthesis measuring 2 mm at C3-C4 and C4-C5.? No abnormal widening of the facets or interspinous distances.? No suspicious lytic or blastic osseous lesion? Multilevel multifactorial degenerative changes, overall moderate. ? Soft tissues:? Prevertebral soft tissues are normal in thickness.? No paravertebral hematomas.? No apical pneumothoraces.? ? ? IMPRESSION:? No CT evidence of acute traumatic cervical spine injury. ? Dictated by: Mario Mcgee M.D. on 03/10/2022 at 22:12 ? ? Approved by: Mario Mcgee M.D. on 03/10/2022 at 22:13 ? MDM Narrative Medical decision making narrative: 81M poor historian with little info from home presents with low grade fever and multiple days of N/V/D. He did fall today, but details of fall are unclear and he does suggest there is no injury. His vitals have been reassuring. He has no focal findings. Initially we were heading down and infectious pathway, eventually we were able to get a hold of his who states that for at least the past few days he has been acting a bit ?goofy?, at this point head CT was added noting the findings dictated above. I have spoken with [facility] and accepting physician (Alex) sets blood pressure goals at below 160, nicardipine if needed, recommends Kcentra and asked that we obtain CT angiogram of the head prior to sending if able, but not at the risk of delaying transfer. is at the bedside and understands the severity of this diagnosis, she states that most recently the patient himself had made it clear that he wants everything done in the event of an illness or injury. 2201 - KCentra not found in night pharmacy. 2209 - BP up to 170, Nicardipine ordered with SBP<160 as goal Critical Care Time Critical Care Time Attestation: The high probability of a clinically significant, sudden or life threatening deterioration of the [NV] system(s) required my full and direct attention, intervention and personal management. The aggregate critical care time was [30] minutes. This time is in addition to time spent performing reported procedures but includes the following: [x] Data Review and interpretation [x] Patient assessment and monitoring of vital signs [x] Documentation [x] Medication orders and management Discharge Plan Departure Patient Disposition: [facility] Clinical Impression: Intraventricular hemorrhage Prescriptions: No Action atorvastatin 10 mg tablet 10 mg PO BEDTIME Qty: 90 3RF metoprolol tartrate [Lopressor] 100 mg tablet 100 mg PO BID Qty: 180 3RF Label Comments: script not filled since 01/07 Xarelto 20 mg tablet 20 mg PO DAILY Qty: 90 3RF Rx Instructions: Blood thinner omeprazole 20 mg capsule,delayed release(DR/EC) 20 mg PO DAILY Qty: 90 3RF Rx Instructions: Take daily for acid indigestion hydrochlorothiazide 25 mg tablet 25 mg PO QDAY Qty: 90 3RF Label Comments: script not filled since 01/07 amlodipine 10 mg tablet 10 mg PO DAILY Qty: 90 3RF Label Comments: script not filled since 01/07 mirtazapine 15 mg tablet 15 mg PO DAILY Qty: 90 3RF loratadine [Allergy Relief (loratadine)] 10 mg tablet 10 mg PO DAILY Qty: 90 3RF Rx Instructions: Take one tablet daily for allergies docusate sodium 100 mg capsule 100 mg PO BID Qty: 60 0RF acetaminophen 325 mg tablet 650 mg PO Q6H Qty: 240 11RF Referrals: Rosendo Armando MD [Primary Care Provider] -
[2022-03-10 19:53] LABS: Creatine Kinase 75 U/L (55-170); Lipase 68 U/L (23-300)
[2022-03-10 19:55] LABS: Alanine Aminotransferase 15 IU/L (<50); Albumin 4.5 g/dL (3.5-5.0); Albumin Globulin Ratio 1.2 (1.0-2.8); Alkaline Phosphatase 69 U/L (38-126); Aspartate Aminotransferase 26 IU/L (17-59); BUN Creatinine Ratio 17.3 (6-22); Bilirubin Total 1.2 mg/dL (0.2-1.3); Blood Urea Nitrogen 24 mg/dL (9-20); Calcium 9.8 mg/dL (8.4-10.2); Carbon Dioxide 23 mmol/L (22-32); Chloride 100 mmol/L (98-107); Estimated Glomerular Filt Rate 51 mL/min (>60); Globulin 3.8 g/dL (1.7-4.1); Glucose 150 mg/dL (80-110); HEMOLYSIS < 15 (0-50); Potassium 3.3 mmol/L (3.4-5.1); Sodium 139 mmol/L (137-145); Total Protein 8.3 g/dL (6.3-8.2)
[2022-03-10] MEDS: SODIUM CHLORIDE 0.9% 1,000 ML 1000 ML IV (19:55)
[2022-03-10] MEDS: PANTOPRAZOLE 40 MG VIAL IV (19:55)
[2022-03-10] MEDS: ONDANSETRON 4 MG/2 ML INJ IV (19:55)
[2022-03-10 20:01] LABS: Lactate (Lactic Acid) 4.2 mmol/L (0.7-2.1)
[2022-03-10 20:06] LABS: NT-proBNP (BNP-Adult 18+) 1080 pg/mL (<450); Troponin I 0.024 ng/mL (0.01-0.034)
[2022-03-10] MEDS: levoFLOXacin 750 MG/150 ML PIGGYBACK 100 MG IV (20:09)
[2022-03-10 20:26] LABS: Influenza A - CEPHEID Flu A NEGATIVE (NEGATIVE); Influenza B - CEPHEID Flu B NEGATIVE (NEGATIVE)
[2022-03-10 20:32] LABS: COVID-19 CEPHEID PCR (VTM/NP) Negative (Negative)
[2022-03-10 20:45] LABS: D Dimer 360 ng/mL (<230)
--- NOTE | 2022-03-10 20:52 | DI.CT.S_ITS ---
PROCEDURE: CT HEAD/BRAIN WO CON INDICATIONS: fall, on blood thinners, possible head injury TECHNIQUE: Noncontrast 4.5 mm thick angled axial sections acquired from the foramen magnum to the vertex, with coronal and sagittal reformats. For radiation dose reduction, the following was used: automated exposure control, adjustment of mA and/or kV according to patient size. COMPARISON: [facility], CT, HEAD WITHOUT CONTRAST, 12/05/2017, 12:59. FINDINGS: Large volume intraventricular hemorrhage filling most of the right lateral ventricular body, frontal horn, and atrium. Smaller volume hemorrhage layers in the occipital horns. The basilar cisterns are patent. There is no evidence of ventricular obstruction or obstructive hydrocephalus. Global cerebral volume loss with passive expansion of the ventricular system and extra-axial spaces. Remote left parietal infarct redemonstrated. Moderate chronic microvascular ischemic changes. No acute orbital abnormality. Paranasal sinuses and mastoid air cells are predominantly clear. IMPRESSION: Large volume intraventricular hemorrhage. Findings discussed with Dr. Gonzalez at time of dictation. Dictated by: Mario Mcgee M.D. on 03/10/2022 at 21:20 Approved by: Mario Mcgee M.D. on 03/10/2022 at 21:23
[2022-03-10 21:38] LABS: Reflexed Lactate in 2 Hours Y
[2022-03-10 21:41] LABS: INR 2.3 (0.9-1.3); Prothrombin Time 26.2 SECONDS (10.1-12.7)
--- NOTE | 2022-03-10 21:43 | DI.CT.S_ITS ---
PROCEDURE: CT ANGIO HEAD INDICATIONS: Fall on blood thinners TECHNIQUE: After the administration of intravenous contrast, 1 mm thick sections acquired through the [place]. Postcontrast 4.5 mm thick sections then re-acquired from the foramen magnum to the vertex. 10 mm thick gimsvot-lplnmkmkd-xzxkcjxxey (MIP) reformats were acquired of the central intracranial vasculature. For radiation dose reduction, the following was used: automated exposure control, adjustment of mA and/or kV according to patient size. COMPARISON: [facility], CT, CT HEAD/BRAIN WO CON, 03/10/2022, 21:04. FINDINGS: Image quality: Excellent. Anterior circulation: Intracranial internal carotid arteries are normal in size and flow. The flow within the paired anterior cerebral arteries is normal and symmetric. The flow within the middle cerebral arteries is normal and symmetric. The anterior communicating artery is seen. No aneurysms are seen. Posterior circulation: Visualized portions of the vertebral arteries demonstrate normal caliber, and join to form a normal appearing basilar artery. Flow within the posterior cerebral arteries is normal and symmetric. No aneurysms are seen. Brain: Large quantity of right lateral ventricle hemorrhage is again seen. Small amount of hemorrhage layers dependently in the left occipital horn. There is a moderate size area of infarct in the left posterior parieto-occipital region IMPRESSION: 1. Surface of intraventricular hemorrhage is not identified. This may be due to occult posttraumatic venous injury. 2. Fairly stable size of mainly right lateral intraventricular hematoma with small amount of bilateral posterior horn intraventricular hemorrhage. 3. Note of moderate prior infarct in the left parieto-occipital region. Dictated by: Lashawn Forte M.D. on 03/10/2022 at 22:57 Approved by: Lashawn Forte M.D. on 03/10/2022 at 23:08
--- NOTE | 2022-03-10 21:44 | DI.CT.S_ITS ---
PROCEDURE: CT CERVICAL SPINE WO CON INDICATIONS: Trauma, fall TECHNIQUE: Noncontrast 3 mm thick sections acquired from the skull base to the T4 level. Sagittal and coronal reformats were then constructed. For radiation dose reduction, the following was used: automated exposure control, adjustment of mA and/or kV according to patient size. COMPARISON: None. FINDINGS: Image quality: Excellent. Bones: No fracture identified. Alignment is within normal limits. Likely degenerative anterolisthesis measuring 2 mm at C3-C4 and C4-C5. No abnormal widening of the facets or interspinous distances. No suspicious lytic or blastic osseous lesion Multilevel multifactorial degenerative changes, overall moderate. Soft tissues: Prevertebral soft tissues are normal in thickness. No paravertebral hematomas. No apical pneumothoraces. IMPRESSION: No CT evidence of acute traumatic cervical spine injury. Dictated by: Mario Mcgee M.D. on 03/10/2022 at 22:12 Approved by: Mario Mcgee M.D. on 03/10/2022 at 22:13
[2022-03-10] MEDS: NICARDIPINE 25 MG in SODIUM CHLORIDE 0.9% 240 ML 50 ML IV (22:18)
[2022-03-10 22:32] LABS: Lactate 2HR (Lactic Acid Rflx) 1.1 mmol/L (0.7-2.1)
--- NOTE | 2022-03-10 22:51 | PC.NURSE ---
reports that over the past few days pt's confusion has increased. Pt is currently alert and oriented to self and place only. Does not obey commands.
== END 2022-03-10 22:40 | disposition short-term general hospital (02) ==
PROVIDERS: Emergency Provider Emergency Medicine; PCP Student in an Organized Health Care Education/Training Program
DX: I61.5 Nontraumatic intracerebral hemorrhage, intraventricular (principal); W18.30XA Fall on same level, unspecified, initial encounter; R11.2 Nausea with vomiting, unspecified; R19.7 Diarrhea, unspecified; I10 Essential (primary) hypertension; F17.200 Nicotine dependence, unspecified, uncomplicated; Z20.822 Contact with and (suspected) exposure to COVID-19
CPT/HCPCS: 36415; 70450; 70496; 72125; 74022; 80053; 82550; 83605; 83690; 83880; 84484; 85025; 85379; 85610; 87040; 87635; 93005; 96365; 96366; 96367; 96375; 99285; 99291; 99292; C9803; C9113; G0390; J1956; J2405; Q9967